=== PATIENT | female | born 1940 | race African-American/Black ===

== ENCOUNTER → 2016-06-04 | Outpatient (CLI) | payer MEDICARE, BC, OTHER ==
[2016-06-04 10:40] LABS: HEMATOCRIT 42.4 % (36.0-47.0); HEMOGLOBIN 13.5 g/dL (12.0-15.5); HGB HCT DIFFERENCE -1.9; MEAN CORPUSCULAR HEMOGLOBIN 29.6 pg (27.0-33.4); MEAN CORPUSCULAR HGB CONC 31.8 g/dL (32.0-36.0); MEAN CORPUSCULAR VOLUME 93 fl (80-97); RED BLOOD COUNT 4.57 10^6/uL (3.72-5.28); RED CELL DISTRIBUTION WIDTH 14.1 % (11.5-14.0); WHITE BLOOD COUNT 3.5 10^3/uL (4.0-10.5)
[2016-06-04 10:45] LABS: APPEARANCE,URINE CLEAR; BILIRUBIN,URINE NEGATIVE (NEGATIVE); GLUCOSE, URINE NEGATIVE (NEGATIVE); KETONES,URINE NEGATIVE (NEGATIVE); LEUKOCYTE ESTERASE,URINE NEGATIVE (NEGATIVE); NITRITE,URINE NEGATIVE (NEGATIVE); PROTEIN,URINE NEGATIVE (NEGATIVE); URINE SPECIFIC GRAVITY 1.006; UROBILINOGEN,URINE NEGATIVE mg/dL (<2.0)
[2016-06-04 11:02] LABS: ALANINE AMINOTRANSFERASE 33 U/L (9-52); ALBUMIN 4.1 g/dL (3.5-5.0); ALKALINE PHOSPHATASE 116 U/L (38-126); ANION GAP 15 (5-19); ASPARTATE AMINO TRANSFERASE 30 U/L (14-36); BILIRUBIN,DIRECT 0.1 mg/dL (0.0-0.4); BILIRUBIN,TOTAL 0.6 mg/dL (0.2-1.3); BLOOD UREA NITROGEN 18 mg/dL (7-20); CALCIUM 9.6 mg/dL (8.4-10.2); CARBON DIOXIDE 26 mmol/L (22-30); CHLORIDE 104 mmol/L (98-107); CREATININE RESULT 1.19 mg/dL (0.52-1.25); GLUCOSE 87 mg/dL (75-110); POTASSIUM 3.7 mmol/L (3.6-5.0); SODIUM 145.1 mmol/L (137-145); TOTAL PROTEIN 6.6 g/dL (6.3-8.2)
== END ==
LOC: OD 09:45
PROVIDERS: ATTEND Internal Medicine Nephrology
DX: N18.3 Chronic kidney disease, stage 3 (moderate) (principal); I50.9 Heart failure, unspecified; I13.0 Hypertensive heart and chronic kidney disease with heart failure and stage 1 through stage 4 chronic kidney disease, or unspecified chronic kidney disease
CPT/HCPCS: 36415; 80053; 81001; 85027

== ENCOUNTER 2016-06-06 16:29 | Emergency (ER) | payer MEDICARE, BC ==
[2016-06-06] MEDS ORDERED: ASPIRIN 81 MG TABLET, CHEWABLE PO ONE ×2 (17:07→17:10)
--- NOTE | 2016-06-06 17:11 | ER Document Report ---
ED Medical Screen (RME) - General Chief Complaint: Back Pain Stated Complaint: CHEST PAIN AND NECK PAIN Mode of Arrival: Wheelchair Information source: Patient Notes: This is a 76-year-old female who presents to the ER for concerns of upper back pain radiating into her neck. This began this morning upon awakening. It is also associated with the slight substernal chest pain and pressure. She states this feels similar to her prior cardiac pain. She has had some shortness of breath and some nausea associated with these symptoms. The chest pain is described as "indigestion pain". She has taken one 81 mg aspirin today. Her current chest pain is described as 5 out of 10 in her neck and back pain is 8 out of 10. I have greeted and performed a rapid initial assessment of this patient. A comprehensive ED assessment and evaluation of the patient, analysis of test results and completion of the medical decision making process will be conducted by additional ED providers. TRAVEL OUTSIDE OF THE [place] IN LAST 30 DAYS: No - Related Data Allergies/Adverse Reactions: No Known Allergies Allergy (Verified 01/10/16 12:37) Past Medical History - Past Medical History Cardiac Medical History: Reports: Hx Coronary Artery Disease, Hx Heart Attack, Hx Hypercholesterolemia, Hx Hypertension Pulmonary Medical History: Reports: Hx COPD Renal/ Medical History: Denies: Hx Peritoneal Dialysis GI Medical History: Reports: Hx Gastroesophageal Reflux Disease Psychiatric Medical History: Reports: Hx Anxiety, Hx Depression Past Surgical History: Reports: Hx Cardiac Catheterization, Hx Hysterectomy - Immunizations Hx Diphtheria, Pertussis, Tetanus Vaccination: No Physical Exam - Vital signs Vitals: Temp Pulse Resp BP Pulse Ox 98.2 F 53 L 18 146/62 H 99 06/06/16 16:31 06/06/16 16:31 06/06/16 16:31 06/06/16 16:31 06/06/16 16:31 Course - Vital Signs Vital signs: Temp Pulse Resp BP Pulse Ox 97.6 F 53 L 14 143/55 H 99 06/06/16 18:54 06/06/16 16:31 06/06/16 18:55 06/06/16 18:55 06/06/16 18:55 - Laboratory Result Diagrams: 06/06/16 17:23 06/06/16 17:23 Laboratory results interpreted by me: 06/06/16 17:23 Potassium 3.5 L BUN 30 H Creatinine 1.49 H Est GFR ( Amer) 41 L Est GFR (Non-Af Amer) 34 L Glucose 120 H Doctor's Discharge - Discharge Clinical Impression: Cervical muscle pain Condition: Stable Disposition: HOME, SELF-CARE Instructions: Muscle Strain ([facility]), Warm Packs ([facility]) Additional Instructions: Gentle massage and gentle stretching will help your pain. Anti-inflammatory medications will help as well. Follow-up with your primary care provider and reconciling clerk in the next 1-2 days. Return to the emergency room immediately if symptoms worsen or any additional concerns. Referrals: ROCKY HALE MD [Primary Care Provider] - Follow up as needed
[2016-06-06 17:44] LABS: ABSOLUTE BASOPHILS # (AUTO) 0.1 10^3/uL (0.0-0.2); ABSOLUTE EOSINOPHILS # (AUTO) 0.2 10^3/uL (0.0-0.6); ABSOLUTE MONOCYTES (AUTO) 0.4 10^3/uL (0.1-1.4); ABSOLUTE NEUT (AUTO) 2.3 10^3/uL (1.7-8.2); BASOPHILS % (AUTO) 1.3 % (0-2); EOSINOPHILS % (AUTO) 4.5 % (0-6); HEMATOCRIT 41.4 % (36.0-47.0); HEMOGLOBIN 13.4 g/dL (12.0-15.5); HGB HCT DIFFERENCE -1.2; LYMPHOCYTES % (AUTO) 40.6 % (13-45); MEAN CORPUSCULAR HEMOGLOBIN 29.7 pg (27.0-33.4); MEAN CORPUSCULAR HGB CONC 32.4 g/dL (32.0-36.0); MEAN CORPUSCULAR VOLUME 92 fl (80-97); MONOCYTES % (AUTO) 7.2 % (3-13); RED BLOOD COUNT 4.52 10^6/uL (3.72-5.28); RED CELL DISTRIBUTION WIDTH 13.9 % (11.5-14.0); SEGMENTED NEUTROPHILS % (AUTO) 46.4 % (42-78); WHITE BLOOD COUNT 4.9 10^3/uL (4.0-10.5)
[2016-06-06 17:50] LABS: PROTHROMBIN TIME 13.2 SEC (11.4-15.4)
[2016-06-06 18:09] LABS: ALANINE AMINOTRANSFERASE 39 U/L (9-52); ALKALINE PHOSPHATASE 124 U/L (38-126); ANION GAP 13 (5-19); ASPARTATE AMINO TRANSFERASE 32 U/L (14-36); BILIRUBIN,DIRECT 0.3 mg/dL (0.0-0.4); BILIRUBIN,TOTAL 0.6 mg/dL (0.2-1.3); BLOOD UREA NITROGEN 30 mg/dL (7-20); CALCIUM 10.1 mg/dL (8.4-10.2); CARBON DIOXIDE 27 mmol/L (22-30); CHLORIDE 103 mmol/L (98-107); CREATINE KINASE 110 U/L (30-135); CREATININE RESULT 1.49 mg/dL (0.52-1.25); GLUCOSE 120 mg/dL (75-110); POTASSIUM 3.5 mmol/L (3.6-5.0); SODIUM 142.8 mmol/L (137-145)
[2016-06-06 18:21] LABS: CREATINE KINASE MB 1.02 ng/mL (<4.55); TROPONIN I 0.013 ng/mL
--- NOTE | 2016-06-06 18:48 | ER Document Report ---
ED General Pain - General Chief Complaint: Back Pain Stated Complaint: CHEST PAIN AND NECK PAIN Time seen by provider: 18:43 Mode of Arrival: Wheelchair Information source: Patient TRAVEL OUTSIDE OF THE [place] IN LAST 30 DAYS: No - HPI Patient complains to provider of: neck pain, upper back pain, chest pain Onset: Other - Months Onset/Duration: Gradual, Persistent, Worse Quality of pain: Achy Severity: Moderate Pain Level: 3 Exacerbated by: Standing, Movement Relieved by: Denies Similar symptoms previously: Yes Recently seen / treated by doctor: Yes Notes: Patient is a 76-year-old female who presents to the emergency room complaining of upper back and neck pain that's been going on for the past several months, it is worsened when she is standing for too long, today when she woke up in the morning, she reports having a slight amount of chest pain, which resolved almost immediately, and has not persisted throughout the day, she reports that to be a burning sensation in her chest and associates it with indigestion, the pain in her neck and upper back did not go away throughout the day today as it has in the past and therefore she came to the emergency room for evaluation on the recommendation of her daughter, patient saw her pattern room attendant yesterday but states she was not having the pain at the time of her visit so she did not mention it to him, at time of my evaluation she denies any chest pain or shortness of breath, no nausea, vomiting or diarrhea, no fever or chills, no cough, cold or congestion - Related Data Allergies/Adverse Reactions: No Known Allergies Allergy (Verified 01/10/16 12:37) Past Medical History - General Information source: Patient - Social History Smoking Status: Never Smoker Chew tobacco use (# tins/day): No Frequency of alcohol use: None Drug Abuse: None Family History: Reviewed & Not Pertinent - Past Medical History Cardiac Medical History: Reports: Hx Coronary Artery Disease, Hx Heart Attack, Hx Hypercholesterolemia, Hx Hypertension Pulmonary Medical History: Reports: Hx COPD Renal/ Medical History: Denies: Hx Peritoneal Dialysis GI Medical History: Reports: Hx Gastroesophageal Reflux Disease Psychiatric Medical History: Reports: Hx Anxiety, Hx Depression Past Surgical History: Reports: Hx Cardiac Catheterization, Hx Hysterectomy - Immunizations Hx Diphtheria, Pertussis, Tetanus Vaccination: No Hx Pneumococcal Vaccination: 02/11/09 Review of Systems - Review of Systems Constitutional: No symptoms reported EENT: No symptoms reported Cardiovascular: Chest pain Respiratory: No symptoms reported Gastrointestinal: No symptoms reported Genitourinary: No symptoms reported Female Genitourinary: No symptoms reported Musculoskeletal: See HPI Skin: No symptoms reported Hematologic/Lymphatic: No symptoms reported Neurological/Psychological: No symptoms reported -: Yes All other systems reviewed and negative Physical Exam - Vital signs Vitals: Temp Pulse Resp BP Pulse Ox 98.2 F 53 L 18 146/62 H 99 06/06/16 16:31 06/06/16 16:31 06/06/16 16:31 06/06/16 16:31 06/06/16 16:31 Interpretation: Normal - General General appearance: Appears well, Alert - HEENT Head: Normocephalic, Atraumatic Eyes: Normal Conjunctiva: Normal Extraocular movements intact: Yes Eyelashes: Normal Pupils: PERRL Neck: Other - Tenderness to palpate in bilateral paraspinal musculature of the cervical spine into the trapezius muscles - Respiratory Respiratory status: No respiratory distress Chest status: Nontender Breath sounds: Normal Chest palpation: Normal - Cardiovascular Rhythm: Regular Heart sounds: Normal auscultation Murmur: No - Abdominal Inspection: Normal Distension: No distension Bowel sounds: Normal Tenderness: Nontender Organomegaly: No organomegaly - Back Back: Normal, Nontender - Extremities General upper extremity: Normal inspection, Nontender, Normal color, Normal ROM , Normal temperature General lower extremity: Normal inspection, Nontender, Normal color, Normal ROM , Normal temperature, Normal weight bearing. No: Kel's sign - Neurological Neuro grossly intact: Yes Cognition: Normal Orientation: AAOx4 Jennifer Coma Scale Eye Opening: Spontaneous Jennifer Coma Scale Verbal: Oriented [place] Coma Scale Motor: Obeys Commands [place] Coma Scale Total: 15 Speech: Normal Motor strength normal: LUE, RUE, LLE, RLE Sensory: Normal - Psychological Associated symptoms: Normal affect, Normal mood - Skin Skin Temperature: Warm Skin Moisture: Dry Skin Color: Normal Course - Re-evaluation Re-evalutation: 06/06/16 18:46 Lab and imaging findings were discussed with patient at bedside, she has tenderness to palpate in her paraspinal musculature of the cervical spine and the trapezius muscles, her symptoms are consistent with musculoskeletal strain, she was offered pain medication but states that she will take a Tylenol PM when she gets home and follow-up with her primary care provider and pattern room attendant in the next 1-2 days, patient was advised to return to emergency room if symptoms worsen in any way, patient acknowledges understanding and agreement with this plan - Vital Signs Vital signs: Temp Pulse Resp BP Pulse Ox 98.2 F 53 L 20 125/55 L 97 06/06/16 16:31 06/06/16 16:31 06/06/16 18:01 06/06/16 18:01 06/06/16 18:01 - Laboratory Result Diagrams: 06/06/16 17:23 06/06/16 17:23 Laboratory results interpreted by me: 06/06/16 17:23 Potassium 3.5 L BUN 30 H Creatinine 1.49 H Est GFR ( Amer) 41 L Est GFR (Non-Af Amer) 34 L Glucose 120 H - Diagnostic Test Radiology reviewed: Image reviewed, Reports reviewed - EKG Interpretation by Me EKG shows normal: Sinus rhythm Rate: Normal Rhythm: NSR, PVC's When compared to previous EKG there are: No significant change Discharge - Discharge Clinical Impression: Cervical muscle pain Condition: Stable Disposition: HOME, SELF-CARE Instructions: Muscle Strain ([facility]), Warm Packs ([facility]) Additional Instructions: Gentle massage and gentle stretching will help your pain. Anti-inflammatory medications will help as well. Follow-up with your primary care provider and pattern room attendant in the next 1-2 days. Return to the emergency room immediately if symptoms worsen or any additional concerns.
[2016-06-06 18:58] VITALS: BP 143/55
--- NOTE | 2016-06-06 21:16 | EKG REPORT ---
SEVERITY:- ABNORMAL ECG - SINUS RHYTHM MULTIPLE VENTRICULAR PREMATURE COMPLEXES LVH WITH SECONDARY REPOLARIZATION ABNORMALITY BORDERLINE INFERIOR Q WAVES : Confirmed by: Ham Monteiro 06-Jun-2016 21:16:26
== END 2016-06-06 18:58 | disposition home or self-care (01) ==
LOC: ER 16:29
DX: M54.2 Cervicalgia (principal); M54.9 Dorsalgia, unspecified; R07.9 Chest pain, unspecified; I25.10 Atherosclerotic heart disease of native coronary artery without angina pectoris; E78.00 Pure hypercholesterolemia, unspecified; I10 Essential (primary) hypertension; J44.9 Chronic obstructive pulmonary disease, unspecified; I25.2 Old myocardial infarction; Z90.710 Acquired absence of both cervix and uterus
CPT/HCPCS: 93005; 99284; 36415; 82553; 82550; 85025; 85610; 80053; 84484; 71010; 93010; A9270

== ENCOUNTER 2016-09-03 19:12 | Observation (INO) | payer BC, MEDICARE, OTHER ==
--- NOTE | 2016-09-03 20:08 | ER Document Report ---
ED Medical Screen (RME) - General Chief Complaint: Chest Pressure Stated Complaint: CHEST PRESSURE, LEFT ARM PAIN Time Seen by Provider: 09/03/16 20:06 Mode of Arrival: Wheelchair Information source: Patient, Relative TRAVEL OUTSIDE OF THE [place] IN LAST 30 DAYS: No - HPI Patient complains to provider of: CP Onset: This afternoon - pt. with h/o pacemaker with chest heaviness earlier today with radiation to L arm - Related Data Allergies/Adverse Reactions: No Known Allergies Allergy (Verified 01/10/16 12:37) Past Medical History - Social History Chew tobacco use (# tins/day): No Frequency of alcohol use: None Drug Abuse: None - Past Medical History Cardiac Medical History: Reports: Hx Coronary Artery Disease, Hx Heart Attack, Hx Hypercholesterolemia, Hx Hypertension Pulmonary Medical History: Reports: Hx COPD Renal/ Medical History: Denies: Hx Peritoneal Dialysis GI Medical History: Reports: Hx Gastroesophageal Reflux Disease Psychiatric Medical History: Reports: Hx Anxiety, Hx Depression Past Surgical History: Reports: Hx Cardiac Catheterization, Hx Hysterectomy - Immunizations Hx Diphtheria, Pertussis, Tetanus Vaccination: No
--- NOTE | 2016-09-03 20:32 | ER Document Report ---
ED General - General Chief Complaint: Chest Pressure Stated Complaint: CHEST PRESSURE, LEFT ARM PAIN Time Seen by Provider: 09/03/16 20:06 Mode of Arrival: Wheelchair Notes: 76-year-old female with a history of coronary bypass and pacemaker a patient of Dr. Hernández, presents with pain in her left chest heavy, for minutes at a time radiating down her left arm with some some tingling. Nonexertional not positional. Similar to prior. Patient had a stress test in 2014 showing old NV but no reversible areas of ischemia and the recommendation was to aggressively manage her risk factors. She has a history of severe systolic edges of heart failure and COPD. TRAVEL OUTSIDE OF THE [place] IN LAST 30 DAYS: No - Related Data Allergies/Adverse Reactions: No Known Allergies Allergy (Verified 01/10/16 12:37) Past Medical History - General Information source: Patient, Relative - Social History Smoking Status: Never Smoker Chew tobacco use (# tins/day): No Frequency of alcohol use: None Drug Abuse: None Family History: Reviewed & Not Pertinent - Past Medical History Cardiac Medical History: Reports: Hx Coronary Artery Disease, Hx Heart Attack, Hx Hypercholesterolemia, Hx Hypertension Pulmonary Medical History: Reports: Hx COPD Renal/ Medical History: Denies: Hx Peritoneal Dialysis GI Medical History: Reports: Hx Gastroesophageal Reflux Disease Psychiatric Medical History: Reports: Hx Anxiety, Hx Depression Past Surgical History: Reports: Hx Cardiac Catheterization, Hx Hysterectomy - Immunizations Hx Diphtheria, Pertussis, Tetanus Vaccination: No Hx Pneumococcal Vaccination: 02/11/09 Review of Systems - Review of Systems Notes: REVIEW OF SYSTEMS GEN: Denies fever, chills, weight loss ENT: Denies sore throat, nasal discharge, ear pain EYES: Denies blurry vision, eye pain, discharge CV: Chest pain RESP: Denies cough, shortness of breath, wheezing GI: Denies abdominal pain, nausea, vomiting, diarrhea MSK: Denies joint pain/swelling, edema, SKIN: Denies rash, skin lesions LYMPH: Denies swollen glands/lymph nodes NEURO: Denies headache, focal weakness or numbness, dizziness PSYCH: Denies depression, suicidal or homicidal ideation PHYSICAL EXAMINATION General: No acute distress, well-nourished Head: Atraumatic, normocephalic ENT: Mouth normal, oropharynx moist, no exudates or tonsillar enlargement Eyes: Conjunctiva normal, pupils equal, lids normal Neck: No JVD, supple, no guarding CVS: Normal rate, regular rhythm, no murmurs. Well-healed sternotomy and pacemaker scars. Resp: No resp distress, equal and normal breath sounds bilaterally GI: Nondistended, soft, no tenderness to palpation, no rebound or guarding Ext: No deformities, no edema, normal range of motion in upper and lower ext Back: No CVA or midline TTP Skin: No rash, warm Lymphatic: No lymphadeopathy noted Neuro: Awake, alert. Face symmetric. GCS 15. Physical Exam - Vital signs Vitals: Resp Pulse Ox 21 H 99 09/03/16 20:23 09/03/16 20:23 Course - Re-evaluation Re-evalutation: 09/03/16 21:03 76-year-old female presents with chest pain with both typical and atypical features and a history of coronary artery disease. Though her stress test a year and a half ago slightly lowers her risk, her heart score is still: 6 And she has EKG changes. We will rule her out with a troponin and admit her for further workup. 09/03/16 21:05 09/03/16 21:22 Negative troponin. Pain-free. Accepted by Dr. Fragoso for admission. - Vital Signs Vital signs: Temp Pulse Resp BP Pulse Ox 21 H 148/65 H 99 09/03/16 21:01 09/03/16 21:01 09/03/16 21:01 - Laboratory Result Diagrams: 09/03/16 20:25 09/03/16 20:25 Laboratory results interpreted by ne: 09/03/16 20:25 BUN 21 H Est GFR ( Amer) 52 L Est GFR (Non-Af Amer) 43 L - EKG Interpretation by Ak EKG shows normal: Sinus rhythm Rate: Normal Rhythm: NSR - T-wave inversion in V4 V5 V6 with borderline ST depression in V5. T-wave inversion in lead III, 2, aVF. These are slightly better than before. The T-wave is now upright in V3 which is new. Discharge - Discharge Clinical Impression: Chest pain Qualifiers: Chest pain type: other chest pain Qualified Code(s): R07.89 - Other chest pain Condition: Good Disposition: ADMITTED OBSERVATION Admitting Provider: Hospitalist Unit Admitted: Telemetry
[2016-09-03 20:36] LABS: ABSOLUTE EOSINOPHILS # (AUTO) 0.2 10^3/uL (0.0-0.6); ABSOLUTE MONOCYTES (AUTO) 0.3 10^3/uL (0.1-1.4); ABSOLUTE NEUT (AUTO) 2.1 10^3/uL (1.7-8.2); BASOPHILS % (AUTO) 1.1 % (0-2); EOSINOPHILS % (AUTO) 4.9 % (0-6); HEMATOCRIT 40.8 % (36.0-47.0); HEMOGLOBIN 13.3 g/dL (12.0-15.5); HGB HCT DIFFERENCE -0.9; LYMPHOCYTES % (AUTO) 43.3 % (13-45); MEAN CORPUSCULAR HEMOGLOBIN 30.6 pg (27.0-33.4); MEAN CORPUSCULAR HGB CONC 32.7 g/dL (32.0-36.0); MEAN CORPUSCULAR VOLUME 93 fl (80-97); MONOCYTES % (AUTO) 6.4 % (3-13); RED BLOOD COUNT 4.36 10^6/uL (3.72-5.28); RED CELL DISTRIBUTION WIDTH 13.3 % (11.5-14.0); SEGMENTED NEUTROPHILS % (AUTO) 44.3 % (42-78); WHITE BLOOD COUNT 4.7 10^3/uL (4.0-10.5)
[2016-09-03 20:55] LABS: ALANINE AMINOTRANSFERASE 31 U/L (9-52); ALBUMIN 4.2 g/dL (3.5-5.0); ALKALINE PHOSPHATASE 124 U/L (38-126); ANION GAP 11 (5-19); ASPARTATE AMINO TRANSFERASE 25 U/L (14-36); BILIRUBIN,DIRECT 0.3 mg/dL (0.0-0.4); BILIRUBIN,TOTAL 0.5 mg/dL (0.2-1.3); BLOOD UREA NITROGEN 21 mg/dL (7-20); CALCIUM 10.2 mg/dL (8.4-10.2); CARBON DIOXIDE 24 mmol/L (22-30); CHLORIDE 106 mmol/L (98-107); CREATINE KINASE 120 U/L (30-135); CREATININE RESULT 1.22 mg/dL (0.52-1.25); GLUCOSE 97 mg/dL (75-110); POTASSIUM 3.9 mmol/L (3.6-5.0); SODIUM 140.9 mmol/L (137-145); TOTAL PROTEIN 7.1 g/dL (6.3-8.2)
[2016-09-03 21:05] LABS: CREATINE KINASE MB 0.86 ng/mL (<4.55)
[2016-09-03 21:09] LABS: TROPONIN I < 0.012 ng/mL
--- NOTE | 2016-09-03 21:14 | RADIOLOGY REPORT (SQ) ---
EXAM DESCRIPTION: CHEST PA/LAT COMPLETED DATE/TIME: 09/03/2016 8:36 pm REASON FOR STUDY: cp COMPARISON: 01/10/2016 EXAM PARAMETERS: NUMBER OF VIEWS: two views TECHNIQUE: Digital Frontal and Lateral radiographic views of the chest acquired. RADIATION DOSE: NA LIMITATIONS: none FINDINGS: LUNGS AND PLEURA: No opacities, masses or pneumothorax. No pleural effusion. MEDIASTINUM AND HILAR STRUCTURES: No masses or contour abnormalities. HEART AND VASCULAR STRUCTURES: Heart normal size. No evidence for failure. BONES: No acute findings. HARDWARE: Cardiac hardware unchanged. OTHER: No other significant finding. IMPRESSION: No acute pulmonary disease. TECHNICAL DOCUMENTATION: JOB ID: [id number] [employer]- All Rights Reserved
[2016-09-03] MEDS ORDERED: LORAZEPAM 1 MG TABLET PO PRN (21:51)
[2016-09-03] MEDS ORDERED: NITROGLYCERIN 0.4 MG/TAB 25 TAB/BOTTLE SL PRN (21:52)
[2016-09-03] MEDS ORDERED: MAG HYDROX/AL HYDROX/SIMETH SUSP 30 ML UDCUP PO PRN (21:52)
[2016-09-03] MEDS ORDERED: HEPARIN SOD (PORCINE) 5,000 UNIT/ML 1 ML SYRINGE SUBCUT ONE (23:00)
[2016-09-03] MEDS ORDERED: CARVEDILOL 12.5 MG TABLET PO ONE (23:00)
[2016-09-04 03:16] LABS: CREATINE KINASE MB 0.78 ng/mL (<4.55)
[2016-09-04 03:23] LABS: TROPONIN I < 0.012 ng/mL
--- NOTE | 2016-09-04 05:01 | PDOC H&P ---
History of Present Illness Admission Date/PCP: 09/03/16 21:52 ROCKY HALE MD Patient complains of: Chest pain History of Present Illness: BISHNU BAIN is a 76 year old female with a past medical history of coronary artery disease status post quadruple bypass graft 2013, congestive heart failure with an ejection fraction of 35%, status post permanent pacemaker AICD placement, hypertension, GERD and dyslipidemia. Patient been her usual state of health until approximately 2 hours prior to presentation developing pressure- like retrosternal chest pain exacerbated by activity pain is somewhat atypical in that it also included pain in her left hand that radiated to the shoulder and a dull nature. She admits some mild shortness of breath no nausea vomiting , diaphoresis or palpitations. She is currently pain-free on initial workup in the emergency room is unremarkable she is referred to the hospitalist for observation. She denies any recent change in medications. Past Medical History Cardiac Medical History: Reports: Coronary Artery Disease, Myocardial Infarction , Hyperlipidema, Hypertension Pulmonary Medical History: Reports: Chronic Obstructive Pulmonary Disease (COPD) GI Medical History: Reports: Gastroesophageal Reflux Disease Psychiatric Medical History: Reports: Depression Past Surgical History Past Surgical History: Reports: Cardiac Catheterization, Hysterectomy Social History Information Source: Patient Lives with: Alone Smoking Status: Never Smoker Frequency of Alcohol Use: None Hx Recreational Drug Use: No Drugs: None Hx Prescription Drug Abuse: No - Advance Directive Resuscitation Status: Full Code Family History Family History: Arthritis, CAD, COPD, Hypertension Parental Family History Reviewed: Yes Children Family History Reviewed: Yes Sibling(s) Family History Reviewed.: Yes Medication/Allergy Home Medications: Aspirin [Aspirin 325 mg Tablet] 325 mg PO DAILY 02/26/14 Atorvastatin Calcium [Lipitor] 40 mg PO DAILY 02/26/14 Captopril [Capoten 25 mg Tablet] 12.5 mg PO TID 02/26/14 Lorazepam [Ativan] 0.5 mg PO BID PRN 02/26/14 Pantoprazole Sodium 40 mg PO QAM 02/26/14 Furosemide [Lasix 20 mg Tablet] 20 mg PO DAILY 04/19/15 Paroxetine HCl [Paxil] 10 mg PO QHS 04/19/15 Carvedilol [Coreg 12.5 mg Tablet] 12.5 mg PO Q12 #60 tablet 04/20/15 Lisinopril [Prinivil 10 mg Tablet] 10 mg PO Q12 #60 tablet 04/20/15 Potassium Chloride [Klor-Con 10 Meq Tablet.sa] 20 meq PO DAILY #60 tablet.sa 10/27 Allergies/Adverse Reactions: No Known Allergies Allergy (Verified 01/10/16 12:37) Review of Systems Constitutional: ABSENT: chills, fever(s), headache(s), weight gain, weight loss Eyes: ABSENT: visual disturbances Ears: ABSENT: hearing changes Cardiovascular: ABSENT: chest pain, dyspnea on exertion, edema, orthropnea, palpitations Respiratory: ABSENT: cough, hemoptysis Gastrointestinal: ABSENT: abdominal pain, constipation, diarrhea, hematemesis, hematochezia, nausea, vomiting Genitourinary: ABSENT: dysuria, hematuria Musculoskeletal: ABSENT: joint swelling Integumentary: ABSENT: rash, wounds Neurological: ABSENT: abnormal gait, abnormal speech, confusion, dizziness, focal weakness, syncope Psychiatric: ABSENT: anxiety, depression, homidical ideation, suicidal ideation Endocrine: ABSENT: cold intolerance, heat intolerance, polydipsia, polyuria Hematologic/Lymphatic: ABSENT: easy bleeding, easy bruising Physical Exam Vital Signs: Temp Pulse Resp BP Pulse Ox 57 L 16 148/70 H 99 09/04/16 01:55 09/03/16 22:31 09/03/16 22:31 09/03/16 22:31 General appearance: PRESENT: no acute distress, well-developed, well-nourished Head exam: PRESENT: atraumatic, normocephalic Eye exam: PRESENT: conjunctiva pink, EOMI, PERRLA. ABSENT: scleral icterus Ear exam: PRESENT: normal external ear exam Mouth exam: PRESENT: moist, tongue midline Neck exam: ABSENT: carotid bruit, JVD, lymphadenopathy, thyromegaly Respiratory exam: PRESENT: clear to auscultation greg. ABSENT: rales, rhonchi, wheezes Cardiovascular exam: PRESENT: RRR. ABSENT: diastolic murmur, rubs, systolic murmur Pulses: PRESENT: normal dorsalis pedis pul Vascular exam: PRESENT: normal capillary refill GI/Abdominal exam: PRESENT: normal bowel sounds, soft. ABSENT: distended, guarding, mass, organolmegaly, rebound, tenderness Rectal exam: PRESENT: deferred Extremities exam: PRESENT: full ROM. ABSENT: calf tenderness, clubbing, pedal edema Neurological exam: PRESENT: alert, awake, oriented to person, oriented to place , oriented to time, oriented to situation, CN II-XII grossly intact. ABSENT: motor sensory deficit Psychiatric exam: PRESENT: appropriate affect, normal mood. ABSENT: homicidal ideation, suicidal ideation Skin exam: PRESENT: dry, intact, warm. ABSENT: cyanosis, rash Results Laboratory Results: 09/04/16 02:38 Triglycerides Cancelled Cholesterol Cancelled LDL Cholesterol Direct Cancelled VLDL Cholesterol Cancelled HDL Cholesterol Cancelled 09/04/16 09/04/16 02:38 02:38 Creatine Kinase 95 CK-MB (CK-2) 0.78 Troponin I < 0.012 Impressions: Chest X-Ray 09/03/16 20:07 IMPRESSION: No acute pulmonary disease. Assessment & Plan - Diagnosis (1) Chest pain Qualifiers: Chest pain type: unspecified Qualified Code(s): R07.9 - Chest pain, unspecified Is this a current diagnosis for this admission?: YesPlan: Orders for observation on a monitored bed, supplemental oxygen, aspirin symptomatic management, evaluation of risk factors for coronary artery disease, serial cardiac enzymes and Cardiolite stress test ordered. (2) Congestive heart failure Is this a current diagnosis for this admission?: YesPlan: Currently compensated continue outpatient regiment (3) HTN (hypertension) Qualifiers: Hypertension type: essential hypertension Qualified Code(s): I10 - Essential (primary) hypertension Is this a current diagnosis for this admission?: YesPlan: Somewhat uncontrolled hypertension resumption of home regiment with as needed Vasotec. - Time Time Spent: 30 to 50 Minutes - Inpatient Certification Medical Necessity: Need Close Monitoring Due to Risk of Patient Decompensation
[2016-09-04] MEDS ORDERED: HEPARIN SOD (PORCINE) 5,000 UNIT/ML 1 ML SYRINGE SUBCUT SCH (06:00)
[2016-09-04 06:23] LABS: CHOLESTEROL 163.86 mg/dL (0-200); Direct HDL 46 mg/dL (>40); TRIGLYCERIDES 182 mg/dL (<150)
[2016-09-04 06:34] LABS: DIRECT LDL 86 mg/dL (<100)
[2016-09-04 06:37] LABS: VLDL CHOLESTEROL 36.4 mg/dL (10-31)
[2016-09-04] MEDS ORDERED: LANSOPRAZOLE 30 MG TAB.RAP.DR PO SCH (08:00)
[2016-09-04 08:40] VITALS: BP 147/58
[2016-09-04 09:14] LABS: CREATINE KINASE MB 0.75 ng/mL (<4.55)
[2016-09-04 09:18] LABS: TROPONIN I < 0.012 ng/mL
[2016-09-04] MEDS ORDERED: ASPIRIN 325 MG TABLET PO SCH (10:00)
[2016-09-04] MEDS ORDERED: FUROSEMIDE 20 MG TABLET PO SCH (10:00)
[2016-09-04] MEDS ORDERED: CAPTOPRIL 25 MG TABLET PO SCH (10:00)
[2016-09-04] MEDS ORDERED: CARVEDILOL 12.5 MG TABLET PO SCH (10:00)
[2016-09-04] MEDS ORDERED: ATORVASTATIN CALCIUM 20 MG TABLET PO SCH (10:00)
[2016-09-04] MEDS ORDERED: POTASSIUM CHLORIDE 10 MEQ TABLET.SA PO SCH (10:00)
[2016-09-04] MEDS ORDERED: DOCUSATE SODIUM 100 MG CAPSULE PO SCH (10:00)
--- NOTE | 2016-09-04 11:56 | PDOC DISCHARGE SUMMARY ---
General - Admit/Disc Date/PCP Admission Date/Primary Care Provider: 09/03/16 21:52 ROCKY HALE MD Discharge Date: 09/04/16 - Discharge Diagnosis (1) Atypical chest pain Is this a current diagnosis for this admission?: YesSummary: likely MSK as she ruled out for acute ischemia with negative enzymes and no ecg changes; furthermore, a great deal of his symptoms are reproducible on exam. I confirmed with Yanique at [facility] that she did indeed have a negative cardiolyte stress test on 05/15/16 and in 06/27 f/u only change made to her regimen was addition of diuretic to help offload the heart. she is stable for and quite anxious for discharge home, I secured her a f/u appt with cardiology this at 3:30 in [place]. return to the ED for worsening or recurrent symptoms. (2) Diabetes Is this a current diagnosis for this admission?: Yes (3) Coronary atherosclerosis Is this a current diagnosis for this admission?: Yes (4) HTN (hypertension) Is this a current diagnosis for this admission?: Yes - Additional Information Resuscitation Status: Full Code Discharge Diet: Cardiac Discharge Activity: Activity As Tolerated Home Medications: Amlodipine Besylate [Norvasc 2.5 mg Tablet] 2.5 mg PO DAILY 09/04/16 Aspirin [Adult Low Dose Aspirin EC] 81 mg PO DAILY 09/04/16 Atorvastatin Calcium [Lipitor 40 mg Tablet] 20 mg PO DAILY 09/04/16 Carvedilol [Coreg 12.5 mg Tablet] 18.75 mg PO Q12 09/04/16 Isosorbide Mononitrate [Imdur 30 mg Tablet.er] 30 mg PO DAILY 09/04/16 Lisinopril/Hydrochlorothiazide [Zestoretic 20-12.5 mg Tablet] 1 tab PO DAILY Lorazepam [Ativan 0.5 mg Tablet] 0.5 mg PO BIDP PRN 09/04/16 Nitroglycerin [Nitrostat 0.4 mg (1/150 Gr) Tabs 25/Bottle] 1 tab SL Q5MP PRN bottle 09/04/16 Pantoprazole Sodium [Protonix] 40 mg PO DAILY 09/04/16 History of Present Illness Patient complains of: chest pain History of Present Illness: BISHNU BAIN is a 76 year old female with a past medical history of coronary artery disease status post quadruple bypass graft 2013, congestive heart failure with an ejection fraction of 35%, status post permanent pacemaker AICD placement, hypertension, GERD and dyslipidemia. Patient been her usual state of health until approximately 2 hours prior to presentation developing pressure- like retrosternal chest pain exacerbated by activity pain is somewhat atypical in that it also included pain in her left hand that radiated to the shoulder and a dull nature. She admits some mild shortness of breath no nausea vomiting , diaphoresis or palpitations. She is currently pain-free on initial workup in the emergency room is unremarkable she is referred to the hospitalist for observation. She denies any recent change in medications. Hospital Course Hospital Course: she was monitored overnight on telemetry showing bradycardia with HR in mid 50' s and pacemaker supplementing her underlying sinus mark anthony with fairly frequent PVCs. she ruled out for acute ischemia with negative enzymes. her symptoms are largely reproducible on exam and resolved as of this morning. her pain seems to lie along her CABG scar and pacer pocket though both wounds appear intact with no overlying erythema or underlying fluctuance or fluid collection or heat. I was able to confirm a negative stress test this past May and secured her a quick f/u apppt with her cardiology group for this but she is stable for d/c home and should return to the ED immediately for persistent or escalating symptoms in the interim. she states understanding and agreement with the plan, expresses no concerns to me about going home at this time. Physical Exam Vital Signs: Temp Pulse Resp BP Pulse Ox 97.7 F 50 L 15 147/58 H 96 09/04/16 10:10 09/04/16 10:10 09/04/16 10:10 09/04/16 07:56 09/04/16 10:10 Intake & Output 09/03/16 09/04/16 09/05/16 06:59 06:59 06:59 Intake Total 222 Balance 222 Weight 62.7 kg General appearance: PRESENT: no acute distress, well-developed, well-nourished Head exam: PRESENT: atraumatic, normocephalic Eye exam: PRESENT: EOMI. ABSENT: scleral icterus Mouth exam: PRESENT: moist, neck supple Neck exam: PRESENT: full ROM. ABSENT: JVD Respiratory exam: PRESENT: chest wall tenderness - along surgical scar and point tenderness over medial aspect of her pacer pocket, clear to auscultation greg. ABSENT: accessory muscle use Cardiovascular exam: PRESENT: bradycardia, irregular rhythm, systolic murmur - soft Pulses: PRESENT: normal radial pulses, normal dorsalis pedis pul GI/Abdominal exam: PRESENT: normal bowel sounds, soft. ABSENT: tenderness Extremities exam: ABSENT: calf tenderness, pedal edema Musculoskeletal exam: PRESENT: ambulatory, full ROM Neurological exam: PRESENT: alert, awake, oriented to person, oriented to place , oriented to time, oriented to situation Psychiatric exam: PRESENT: appropriate affect, normal mood Skin exam: PRESENT: dry, warm Results Laboratory Results: 09/04/16 09/04/16 02:38 05:56 Triglycerides Cancelled 182 H Cholesterol Cancelled 163.86 LDL Cholesterol Direct Cancelled 86 VLDL Cholesterol Cancelled 36.4 H HDL Cholesterol Cancelled 46 09/04/16 09/04/16 09/04/16 02:38 02:38 08:27 Creatine Kinase 95 CK-MB (CK-2) 0.78 0.75 Troponin I < 0.012 < 0.012 Impressions: Chest X-Ray 09/03/16 20:07 IMPRESSION: No acute pulmonary disease. Qualifiers PATEINT BEING DISCHARGED WITH ANY OF THE FOLLOWING DIAGNOSIS?: No VTE patient discharged on overlapping Therapy?: No Reason(s) for not prescribing Overlap Therapy:: Not indicated Plan Discharge Plan: home with close outpt f/u with cardiology Time Spent: Greater than 30 Minutes
--- NOTE | 2016-09-04 12:52 | EKG REPORT ---
SEVERITY:- ABNORMAL ECG - SINUS RHYTHM LVH WITH SECONDARY REPOLARIZATION ABNORMALITY : Confirmed by: Alexandra Garvin MD 04-Sep-2016 12:52:15
== END 2016-09-04 10:45 | disposition home or self-care (01) ==
LOC: ER 19:12 → UNDOADMOB 21:30 → EH 21:30 → 4N 22:40 → EH 22:40
PROVIDERS: ADMIT Internal Medicine; ATTEND Internal Medicine
DX: R07.89 Other chest pain (principal); E11.9 Type 2 diabetes mellitus without complications; I25.10 Atherosclerotic heart disease of native coronary artery without angina pectoris; I50.9 Heart failure, unspecified; I11.0 Hypertensive heart disease with heart failure; E78.5 Hyperlipidemia, unspecified; K21.9 Gastro-esophageal reflux disease without esophagitis; I49.3 Ventricular premature depolarization; M79.642 Pain in left hand; R20.2 Paresthesia of skin; I25.2 Old myocardial infarction; Z79.899 Other long term (current) drug therapy; Z79.82 Long term (current) use of aspirin; Z95.1 Presence of aortocoronary bypass graft; Z95.810 Presence of automatic (implantable) cardiac defibrillator; Z82.49 Family history of ischemic heart disease and other diseases of the circulatory system
CPT/HCPCS: 93005; 99285; 36415 ×2; 82553 ×2; 82550 ×2; 85025; 80053; 84484 ×2; 80061; 71020; 93010; G0378 ×2; J1644; A9270; J3490 ×2

== ENCOUNTER → 2016-12-07 | Outpatient (CLI) | payer MEDICARE, OTHER ==
[2016-12-07 11:04] LABS: HEMATOCRIT 42.3 % (36.0-47.0); HEMOGLOBIN 13.9 g/dL (12.0-15.5); HGB HCT DIFFERENCE -0.6; MEAN CORPUSCULAR HEMOGLOBIN 30.4 pg (27.0-33.4); MEAN CORPUSCULAR VOLUME 92 fl (80-97); RED BLOOD COUNT 4.58 10^6/uL (3.72-5.28); RED CELL DISTRIBUTION WIDTH 14.1 % (11.5-14.0); WHITE BLOOD COUNT 3.5 10^3/uL (4.0-10.5)
[2016-12-07 11:32] LABS: ANION GAP 10 (5-19); BLOOD UREA NITROGEN 19 mg/dL (7-20); CALCIUM 10.4 mg/dL (8.4-10.2); CARBON DIOXIDE 28 mmol/L (22-30); CHLORIDE 107 mmol/L (98-107); CREATININE RESULT 1.17 mg/dL (0.52-1.25); GLUCOSE 70 mg/dL (75-110); POTASSIUM 3.9 mmol/L (3.6-5.0); SODIUM 145.4 mmol/L (137-145)
== END ==
LOC: OD 10:20
PROVIDERS: ATTEND Internal Medicine Nephrology
DX: I12.9 Hypertensive chronic kidney disease with stage 1 through stage 4 chronic kidney disease, or unspecified chronic kidney disease (principal); N18.3 Chronic kidney disease, stage 3 (moderate); I50.9 Heart failure, unspecified
CPT/HCPCS: 36415; 80048; 85027

== ENCOUNTER 2016-12-28 13:16 | Emergency (ER) | payer MEDICARE, OTHER ==
[2016-12-28] MEDS ORDERED: ASPIRIN 81 MG TABLET, CHEWABLE PO ONE (14:28)
--- NOTE | 2016-12-28 14:41 | ER Document Report ---
ED Medical Screen (RME) - General Mode of Arrival: Wheelchair Information source: Patient TRAVEL OUTSIDE OF THE [place] IN LAST 30 DAYS: No - HPI Onset: Other - 3 days ago - General Chief Complaint: Shortness Of Breath Stated Complaint: SHORTNESS OF BREATH/CHEST PAIN Time Seen by Provider: 12/28/16 14:22 Notes: Patient is a 76 year old female with a history of [place], presents to the emergency department complaining of shortness of breath onset 3 days ago. Patient states that she also has associated symptoms of headaches, tiredness, chest tightness, pain in her arms , as well as cough and chills. Patient denies fevers or wheezing. Patient has a defibrillator and pacemaker. (VIC[employer]E VIDAL) - Related Data Allergies/Adverse Reactions: No Known Allergies Allergy (Verified 12/28/16 13:33) Past Medical History - General Information source: Patient - Social History Cigarette use (# per day): No Chew tobacco use (# tins/day): No Frequency of alcohol use: None - Past Medical History Cardiac Medical History: Reports: Hx Coronary Artery Disease, Hx Heart Attack, Hx Hypercholesterolemia, Hx Hypertension Pulmonary Medical History: Reports: Hx COPD Renal/ Medical History: Denies: Hx Peritoneal Dialysis GI Medical History: Reports: Hx Gastroesophageal Reflux Disease Psychiatric Medical History: Reports: Hx Anxiety, Hx Depression Past Surgical History: Reports: Hx Cardiac Catheterization, Hx Hysterectomy - Immunizations Hx Diphtheria, Pertussis, Tetanus Vaccination: No Review of Systems - Review of Systems Constitutional: See HPI, Chills EENT: No symptoms reported Cardiovascular: See HPI, Chest pain Respiratory: See HPI, Short of breath Gastrointestinal: No symptoms reported Genitourinary: No symptoms reported Female Genitourinary: No symptoms reported Musculoskeletal: Other - pain in arms Skin: No symptoms reported Hematologic/Lymphatic: No symptoms reported Neurological/Psychological: No symptoms reported -: Yes All other systems reviewed and negative Physical Exam - General General appearance: Appears well, Alert In distress: None - HEENT Head: Normocephalic, Atraumatic Pupils: PERRL - Respiratory Respiratory status: No respiratory distress Breath sounds: Normal Chest palpation: Normal - Cardiovascular Rhythm: Regular Heart sounds: Normal auscultation Murmur: No Friction rub: No Gallop: None auscultated - Abdominal Inspection: Normal Distension: No distension Bowel sounds: Normal Tenderness: Nontender Organomegaly: No organomegaly - Psychological Associated symptoms: Normal affect, Normal mood - Skin Skin Temperature: Warm Skin Moisture: Dry - Vital signs Vitals: Temp Pulse Resp BP Pulse Ox 98.4 F 82 17 154/78 H 100 12/28/16 13:33 12/28/16 13:33 12/28/16 13:33 12/28/16 13:33 12/28/16 13:33 - Vital Signs Vital signs: Temp Pulse Resp BP Pulse Ox 98.4 F 82 17 154/78 H 100 12/28/16 13:33 12/28/16 13:33 12/28/16 13:33 12/28/16 13:33 12/28/16 13:33 Scribe Documentation - Scribe Written by Alyssa:: Alyssa Britton, 12/28/2016 Preeti acting as scribe for :: Preeti
[2016-12-28 15:12] LABS: ABSOLUTE EOSINOPHILS # (AUTO) 0.1 10^3/uL (0.0-0.6); ABSOLUTE LYMPHOCYTES (AUTO) 1.7 10^3/uL (0.5-4.7); ABSOLUTE MONOCYTES (AUTO) 0.2 10^3/uL (0.1-1.4); ABSOLUTE NEUT (AUTO) 1.9 10^3/uL (1.7-8.2); BASOPHILS % (AUTO) 1.1 % (0-2); EOSINOPHILS % (AUTO) 3.3 % (0-6); HEMOGLOBIN 14.3 g/dL (12.0-15.5); HGB HCT DIFFERENCE -0.1; LYMPHOCYTES % (AUTO) 42.5 % (13-45); MEAN CORPUSCULAR HEMOGLOBIN 30.7 pg (27.0-33.4); MEAN CORPUSCULAR HGB CONC 33.3 g/dL (32.0-36.0); MEAN CORPUSCULAR VOLUME 92 fl (80-97); RED BLOOD COUNT 4.66 10^6/uL (3.72-5.28); RED CELL DISTRIBUTION WIDTH 13.9 % (11.5-14.0); SEGMENTED NEUTROPHILS % (AUTO) 47.1 % (42-78); WHITE BLOOD COUNT 4.1 10^3/uL (4.0-10.5)
[2016-12-28 15:29] LABS: ALANINE AMINOTRANSFERASE 43 U/L (9-52); ALBUMIN 4.3 g/dL (3.5-5.0); ALKALINE PHOSPHATASE 118 U/L (38-126); ANION GAP 13 (5-19); ASPARTATE AMINO TRANSFERASE 29 U/L (14-36); BILIRUBIN,DIRECT 0.4 mg/dL (0.0-0.4); BILIRUBIN,TOTAL 0.5 mg/dL (0.2-1.3); BLOOD UREA NITROGEN 23 mg/dL (7-20); CALCIUM 10.4 mg/dL (8.4-10.2); CARBON DIOXIDE 26 mmol/L (22-30); CHLORIDE 105 mmol/L (98-107); CREATINE KINASE 86 U/L (30-135); CREATININE RESULT 1.16 mg/dL (0.52-1.25); GLUCOSE 89 mg/dL (75-110); POTASSIUM 4.4 mmol/L (3.6-5.0); SODIUM 144.1 mmol/L (137-145); TOTAL PROTEIN 7.2 g/dL (6.3-8.2)
--- NOTE | 2016-12-28 15:31 | RADIOLOGY REPORT (SQ) ---
EXAM DESCRIPTION: CHEST SINGLE VIEW COMPLETED DATE/TIME: 12/28/2016 3:18 pm REASON FOR STUDY: chest pain, SOB, cough COMPARISON: 09/03/2016 EXAM PARAMETERS: NUMBER OF VIEWS: One view. TECHNIQUE: Single frontal radiographic view of the chest acquired. RADIATION DOSE: NA LIMITATIONS: None. FINDINGS: LUNGS AND PLEURA: No opacities, masses or pneumothorax. No pleural effusion. MEDIASTINUM AND HILAR STRUCTURES: No masses. Contour normal. HEART AND VASCULAR STRUCTURES: Heart normal in size. Normal vasculature. BONES: No acute findings. HARDWARE: Pacemaker/defibrillator. Sternotomy wires. Graft markers. OTHER: No other significant finding. IMPRESSION: NO ACUTE RADIOGRAPHIC FINDING IN THE CHEST. TECHNICAL DOCUMENTATION: JOB ID: [id number] [email or web address]- All Rights Reserved
[2016-12-28 15:42] LABS: CREATINE KINASE MB 0.53 ng/mL (<4.55)
[2016-12-28 15:45] LABS: TROPONIN I < 0.012 ng/mL
--- NOTE | 2016-12-28 16:53 | ER Document Report ---
ED Respiratory Problem - General Chief Complaint: Shortness Of Breath Stated Complaint: SHORTNESS OF BREATH/CHEST PAIN Time Seen by Provider: 12/28/16 14:22 Mode of Arrival: Wheelchair Information source: Patient TRAVEL OUTSIDE OF THE [place] IN LAST 30 DAYS: No - HPI Patient complains to provider of: Cough, Short of breath Onset: Other - 2 days Duration: Continuous Quality of pain: Achy Severity: Mild Short of Breath: Mild Chest pain/discomfort: Tightness Cough: Productive Sputum amount: Small Sputum color: White Sputum consistency: Mucoid Associated symptoms: Chills, Cough, Headache, Short of breath Similar symptoms previously: Yes Recently seen / treated by doctor: No Notes: Patient is a 76-year-old female with significant coronary artery disease history with an [place], AICD/pacemaker, triple bypass, and hypertension, presenting to the emergency room complaining of productive cough for the past 2-3 days, with whitish colored phlegm, feeling tired with generalized weakness and shortness of breath, pain near her pacemaker, and her left arm feels tired, she also complains of a headache and chest tightness, as well as chills, denies any leg pain, no sick contacts, no fever - Related Data Allergies/Adverse Reactions: No Known Allergies Allergy (Verified 12/28/16 13:33) Past Medical History - General Information source: Patient - Social History Smoking Status: Former Smoker Cigarette use (# per day): No Chew tobacco use (# tins/day): No Frequency of alcohol use: None Family History: Arthritis, CAD, COPD, Hypertension Patient has suicidal ideation: No Patient has homicidal ideation: No - Past Medical History Cardiac Medical History: Reports: Hx Coronary Artery Disease, Hx Heart Attack, Hx Hypercholesterolemia, Hx Hypertension Pulmonary Medical History: Reports: Hx COPD Renal/ Medical History: Denies: Hx Peritoneal Dialysis GI Medical History: Reports: Hx Gastroesophageal Reflux Disease Psychiatric Medical History: Reports: Hx Anxiety, Hx Depression Past Surgical History: Reports: Hx Cardiac Catheterization, Hx Hysterectomy - Immunizations Hx Diphtheria, Pertussis, Tetanus Vaccination: No Hx Pneumococcal Vaccination: 02/11/09 Review of Systems - Review of Systems Constitutional: See HPI EENT: No symptoms reported Cardiovascular: See HPI Respiratory: See HPI Gastrointestinal: No symptoms reported Genitourinary: No symptoms reported Female Genitourinary: No symptoms reported Musculoskeletal: No symptoms reported Skin: No symptoms reported Hematologic/Lymphatic: No symptoms reported Neurological/Psychological: See HPI -: Yes All other systems reviewed and negative Physical Exam - Vital signs Vitals: Temp Pulse Resp BP Pulse Ox 98.4 F 82 17 154/78 H 100 12/28/16 13:33 12/28/16 13:33 12/28/16 13:33 12/28/16 13:33 12/28/16 13:33 Interpretation: Normal - General General appearance: Appears well, Alert - HEENT Head: Normocephalic, Atraumatic Eyes: Normal Pupils: PERRL - Respiratory Respiratory status: No respiratory distress Chest status: Nontender Breath sounds: Normal Chest palpation: Normal - Cardiovascular Rhythm: Regular Heart sounds: Normal auscultation Murmur: No - Abdominal Inspection: Normal Distension: No distension Bowel sounds: Normal Tenderness: Nontender Organomegaly: No organomegaly - Back Back: Normal, Nontender - Extremities General upper extremity: Normal inspection, Nontender, Normal color, Normal ROM , Normal temperature General lower extremity: Normal inspection, Nontender, Normal color, Normal ROM , Normal temperature, Normal weight bearing. No: Kel's sign - Neurological Neuro grossly intact: Yes Cognition: Normal Orientation: AAOx4 [place] Coma Scale Eye Opening: Spontaneous [place] Coma Scale Verbal: Oriented [place] Coma Scale Motor: Obeys Commands [place] Coma Scale Total: 15 Speech: Normal Motor strength normal: LUE, RUE, LLE, RLE Sensory: Normal - Psychological Associated symptoms: Normal affect, Normal mood - Skin Skin Temperature: Warm Skin Moisture: Dry Skin Color: Normal Course - Re-evaluation Re-evalutation: 12/28/16 17:09 Patient resting comfortably at this time, lab and imaging findings were reviewed which are unremarkable, she question whether she may have the flu, therefore flu testing has been ordered, we will also obtain a second set of cardiac enzymes around 6:30 PM, anticipate likely discharge if those are negative and patient continues to remain stable 12/28/16 19:48 Lab and imaging findings discussed with patient and son at bedside which are unremarkable, symptoms consistent with likely viral upper respiratory illness, patient will be discharged with instructions for follow-up and advised to return if any worsening symptoms or additional concerns, patient acknowledges understanding and agreement with this plan - Vital Signs Vital signs: Temp Pulse Resp BP Pulse Ox 98.4 F 82 17 154/78 H 100 12/28/16 13:33 12/28/16 13:33 12/28/16 13:33 12/28/16 13:33 12/28/16 13:33 - Laboratory Result Diagrams: 12/28/16 14:35 12/28/16 14:35 Laboratory results interpreted by me: 12/28/16 14:35 BUN 23 H Est GFR ( Amer) 55 L Est GFR (Non-Af Amer) 46 L Calcium 10.4 H - Diagnostic Test Radiology reviewed: Image reviewed, Reports reviewed - EKG Interpretation by Me Heart block present: 1st Degree When compared to previous EKG there are: No significant change Additional EKG results interpreted by me: 12/28/16 17:10 Atrial paced rhythm, rate 67, LVH, first-degree AV block Discharge - Discharge Clinical Impression: SOB (shortness of breath), Atypical chest pain Condition: Stable Disposition: HOME, SELF-CARE Instructions: Chest Pain of Unclear Cause ([facility]) Additional Instructions: Follow up with your primary care provider in one to 2 days. Return to the emergency room immediately if symptoms worsen or any additional concerns. Referrals: ROCKY HALE MD [Primary Care Provider] - Follow up as needed
[2016-12-28 21:40] VITALS: BP 162/80
--- NOTE | 2016-12-28 22:52 | EKG REPORT ---
SEVERITY:- ABNORMAL ECG - ATRIAL-PACED COMPLEXES FIRST DEGREE AV BLOCK LEFT VENTRICULAR HYPERTROPHY CONSIDER INFERIOR INFARCT : Confirmed by: Ham Monteiro 28-Dec-2016 22:50:58
--- NOTE | 2016-12-28 22:52 | EKG REPORT ---
SEVERITY:- ABNORMAL ECG - ATRIAL-PACED COMPLEXES PROBABLE LEFT ATRIAL ABNORMALITY LVH WITH SECONDARY REPOLARIZATION ABNORMALITY : Confirmed by: Ham Monteiro 28-Dec-2016 22:51:11
== END 2016-12-28 20:46 | disposition home or self-care (01) ==
LOC: ER 13:16
DX: R06.02 Shortness of breath (principal); R07.89 Other chest pain; I25.10 Atherosclerotic heart disease of native coronary artery without angina pectoris; I25.2 Old myocardial infarction; I10 Essential (primary) hypertension; R05 Cough; R53.1 Weakness; Z95.1 Presence of aortocoronary bypass graft
CPT/HCPCS: 93005; 99285; 36415; 82553; 82550; 85025; 80053; 84484; 87804; 71010; 93010; A9270

== ENCOUNTER 2017-02-03 22:27 | Emergency (ER) | payer MEDICARE, OTHER ==
--- NOTE | 2017-02-03 23:27 | ER Document Report ---
ED General - General Chief Complaint: Pain All Over Stated Complaint: BODYACHES Time Seen by Provider: 02/03/17 23:14 Notes: Patient is a very pleasant 76-year-old female presents with complaint of some body aches, low-grade fevers at home, nasal congestion, sinus pain and headache. She is also had a cough and says that recently she has had some mucus production with her cough. No dysuria. No abdominal pain. No chest pain. No shortness of breath. No extremity swelling. No vomiting. She does have history of coronary artery disease does have a pacemaker in place. She says her symptoms have been ongoing for 2 days. Headache has gradually worsened with sinus congestion. No focal neurologic deficits. TRAVEL OUTSIDE OF THE [place] IN LAST 30 DAYS: No - Related Data Allergies/Adverse Reactions: No Known Allergies Allergy (Verified 02/03/17 22:32) Past Medical History - Social History Smoking Status: Never Smoker Frequency of alcohol use: None Drug Abuse: None Family History: Arthritis, CAD, COPD, Hypertension - Past Medical History Cardiac Medical History: Reports: Hx Coronary Artery Disease, Hx Heart Attack, Hx Hypercholesterolemia, Hx Hypertension Pulmonary Medical History: Reports: Hx COPD Renal/ Medical History: Denies: Hx Peritoneal Dialysis GI Medical History: Reports: Hx Gastroesophageal Reflux Disease Psychiatric Medical History: Reports: Hx Anxiety, Hx Depression Past Surgical History: Reports: Hx Cardiac Catheterization, Hx Hysterectomy - Immunizations Hx Diphtheria, Pertussis, Tetanus Vaccination: No Hx Pneumococcal Vaccination: 02/11/09 Review of Systems - Review of Systems Notes: My Normal Review Basic REVIEW OF SYSTEMS: CONSTITUTIONAL : Negative fevers. EENT: Nasal congestion. CARDIOVASCULAR: Denies chest pain. RESPIRATORY: Denies cough, cold, or chest congestion. Denies shortness of breath, difficulty breathing, or wheezing. GASTROINTESTINAL: Denies abdominal pain. Denies nausea, vomiting, or diarrhea. Denies constipation. Last BM: GENITOURINARY: Denies difficulty urinating, painful urination, burning, frequency, or blood in urine. MUSCULOSKELETAL: Denies neck or back pain or joint pain or swelling. SKIN: Denies rash or skin lesions. HEMATOLOGIC : Denies easy bruising or bleeding. NEUROLOGICAL: Denies altered mental status or loss of consciousness. Has a headache. Denies weakness or paralysis or loss of use of either side. Denies problems with gait or speech. Denies sensory or motor loss. ALL OTHER SYSTEMS REVIEWED AND NEGATIVE. Physical Exam - Vital signs Vitals: Temp Pulse Resp BP Pulse Ox 98.1 F 82 18 124/65 97 02/03/17 22:44 02/03/17 22:44 02/03/17 22:44 02/03/17 22:44 02/03/17 22:44 - Notes Notes: General Appearance: Well nourished, alert, cooperative, no acute distress, no obvious discomfort. Well-appearing. Vitals: reviewed, See vital signs table. Head: no swelling or tenderness to the head Eyes: PERRL, EOMI, Conjuctiva clear Mouth: No decreasd moisture Throat: No tonsillar inflammation, No airway obstruction, No lymphadenopathy Ears: Clear fluid behind bilateral tympanic membranes without redness or swelling of the TMs. Neck: Supple, no neck tenderness Lungs: No wheezing, No rales, No rhonci, No accessory muscle use, good air exchange bilaterally. Heart: Normal rate, Regular rythm, No murmur, no rub Abdomen: Normal BS, soft, No rigidity, No abdominal tenderness, No guarding, no rebound, no abdominal masses, no organomegaly Extremities: strength 5/5 in all extremities, good pulses in all extremities, no swelling or tenderness in the extremities, no edema. Skin: warm, dry, appropriate color, no rash Neuro: speech clear, oriented x 3, normal affect, responds appropriately to questions. Renal nerves II through XII are intact. Distal sensation intact. Patient moves all extremities without difficulty. Course - Re-evaluation Re-evalutation: 02/04/17 00:51 I went back and talked the patient again with all her results are negative. I did readdress her headache and her congestion. Her son now says that her congestion is actually been there for 3 months. The patient says the headache is more in the last 2 days. She says she has a hard time telling if there actually related if. She says hard to tell if the headache is coming from her sinuses. She says is not severe but it does bother her some. I told her I still do not suspect subarachnoid hemorrhage and that the headache is gradually worsened over a long period time however at her age being that she has had a continued headache we can do a head CT as she had initially requested.. Patient is agreeable to this as she did initially request a head CT. We will do a CT scan as she had initially requested. 02/04/17 01:33 CT scan is negative. I suspect it was like the patient probably has a viral type illness being that her headache started with body aches and also she has had increased cough production over last 2 days. She also had a subjective fever at home. I did explain this to her and her son. There is still concern that she has had nasal congestion for almost 3 months. Being that she is now having fevers and some productive cough I did talk to him about the option of starting a trial of an antibiotic versus the following up with her doctor. I informed him the risks of antibiotics such as allergic reaction, diarrhea, nausea and vomiting. They said they would like to trial the antibiotic. I have given her a dose of azithromycin here and I will prescribe the remainder of the course. Also talked to the patient about trying Motrin as well as Tylenol for headache. I will give her a dose of Motrin here. I did review her previous records. Her serum creatinine a month ago was 1.1. I will have her take 400 mg of ibuprofen every 6 hours with food if the Tylenol is not working for headache. Patient clinically looks very well. She is awake alert does not appear to be in any distress. I feel that she is safe to be discharged home. Strongly encourage her to return to ER immediately if she has worsening headache , fevers, or feel unwell. Informed her she should be seeing some improvement in 2 days. Informed her if she still has a headache or does not feel well after 2 days and she needs to to follow-up with her doctor come back to the ER for reevaluation. Patient and family member agree with plan and she will be discharged home. Dictation of this chart was performed using voice recognition software; therefore, there may be some unintended grammatical errors. - Vital Signs Vital signs: Temp Pulse Resp BP Pulse Ox 98.1 F 82 18 124/65 97 02/03/17 22:44 02/03/17 22:44 02/03/17 22:44 02/03/17 22:44 02/03/17 22:44 - Laboratory Laboratory results interpreted by me: 02/03/17 23:47 Urine Blood SMALL H Urine Urobilinogen 4.0 H Ur Leukocyte Esterase SMALL H - EKG Interpretation by Me Additional EKG results interpreted by me: 02/03/17 23:44 EKG is reviewed and interpreted by me. EKG shows atrially paced rhythm with a rate of 64 bpm. There is [address] segment elevation. Patient has very mild ST segment depression in the lateral precordial leads is unchanged from her old EKG on December 28, 2016. Patient also has some T-wave inversions in leads II, III and aVF again unchanged from her previous EKG from December 28, 2016. WI interval, QRS duration, QTc intervals are within normal range. Discharge - Discharge Clinical Impression: Congestion of nasal sinus, Body aches Headache Qualifiers: Headache type: unspecified Headache chronicity pattern: acute headache Intractability: not intractable Qualified Code(s): R51 - Headache Condition: Good Disposition: HOME, SELF-CARE Additional Instructions: I suspect that most likely your headache and body aches with the fever at home is likely related to a virus. You have had congestion for 3 months and therefore we discussed the option of a trial of an antibiotic. We will go forward with a trial of an antibiotic. Please stop the antibiotic immediately if you start having nausea and vomiting, diarrhea, or feel that you are becoming worse. Please return to ER immediately if you have worsening headache , vomiting, recurrent fevers, or do not feel well. Please return to the ER or follow-up with your doctor in 2 days if you continue to have any headache. Please follow-up with your doctor within 3-4 days regardless if you are still having symptoms or not so he can reevaluate you. Please take Tylenol first for your headache. If Tylenol is not working then you can try Motrin 400 mg. Always take it with food. Do not take the Motrin more than once every 6 hours. Prescriptions: Azithromycin 250 mg PO DAILY #4 tablet Referrals: ROCKY HALE MD [Primary Care Provider] - 02/06/17
--- NOTE | 2017-02-04 00:27 | RADIOLOGY REPORT (SQ) ---
EXAM DESCRIPTION: CHEST SINGLE VIEW CLINICAL HISTORY: 76 years, Female, cough COMPARISON: None. LIMITATIONS: None. FINDINGS: Moderate hyperinflation, mild interstitial markings, normal cardiac silhouette size, left cardiac stimulation device and leads, and median sternotomy. Mild levo convexity. IMPRESSION: No acute cardiopulmonary findings. 2011 [employer]- All Rights Reserved
[2017-02-04 00:30] LABS: BILIRUBIN,URINE NEGATIVE (NEGATIVE); GLUCOSE, URINE NEGATIVE (NEGATIVE); KETONES,URINE NEGATIVE (NEGATIVE); LEUKOCYTE ESTERASE,URINE SMALL (NEGATIVE); NITRITE,URINE NEGATIVE (NEGATIVE); PROTEIN,URINE NEGATIVE (NEGATIVE); URINE SPECIFIC GRAVITY 1.015
[2017-02-04 00:34] LABS: APPEARANCE,URINE CLEAR
--- NOTE | 2017-02-04 01:08 | RADIOLOGY REPORT (SQ) ---
EXAM DESCRIPTION: CT HEAD WITHOUT CLINICAL HISTORY: 76 years Female, headache COMPARISON: None. TECHNIQUE: No contrast. This exam was performed according to our departmental dose-optimization program, which includes automated exposure control, adjustment of the mA and/or kV according to patient size and/or use of iterative reconstruction technique. FINDINGS: Brain parenchyma appears intact. No hemorrhage or infarct. No mass, mass effect, or midline shift. Atherosclerosis. Extra-axial structures appear otherwise grossly intact. IMPRESSION: No acute findings.
[2017-02-04] MEDS ORDERED: AZITHROMYCIN 250 MG TABLET PO ONE (01:23)
[2017-02-04] MEDS ORDERED: IBUPROFEN 400 MG TABLET PO ONE (01:23)
[2017-02-04 01:52] VITALS: BP 151/70
--- NOTE | 2017-02-04 06:05 | EKG REPORT ---
SEVERITY:- ABNORMAL ECG - ATRIAL-PACED COMPLEXES PROBABLE LEFT ATRIAL ABNORMALITY PROBABLE LVH WITH SECONDARY REPOL ABNRM PROBABLE INFERIOR INFARCT, AGE INDETERMINATE : Confirmed by: Bridger Mclaughlin MD 04-Feb-2017 06:04:01
== END 2017-02-04 01:50 | disposition home or self-care (01) ==
LOC: ER 22:27
DX: R09.81 Nasal congestion (principal); M79.1 Myalgia; R51 Headache; R50.9 Fever, unspecified; R05 Cough
CPT/HCPCS: 93005; 99284; 81001; 87804; 71010; 70450; 93010; A9270 ×2; J3490

== ENCOUNTER → 2017-03-29 | Outpatient (CLI) | payer MEDICARE, OTHER ==
[2017-03-29 09:45] LABS: HEMATOCRIT 39.6 % (36.0-47.0); HEMOGLOBIN 12.9 g/dL (12.0-15.5); MEAN CORPUSCULAR HEMOGLOBIN 30.2 pg (27.0-33.4); MEAN CORPUSCULAR HGB CONC 32.5 g/dL (32.0-36.0); MEAN CORPUSCULAR VOLUME 93 fl (80-97); PLATELET COUNT 183 10^3/uL (150-450); RED BLOOD COUNT 4.25 10^6/uL (3.72-5.28); RED CELL DISTRIBUTION WIDTH 14.1 % (11.5-14.0); WHITE BLOOD COUNT 3.5 10^3/uL (4.0-10.5)
[2017-03-29 09:48] LABS: APPEARANCE,URINE SLIGHTLY-CLOUDY; BILIRUBIN,URINE NEGATIVE (NEGATIVE); COLOR,URINE YELLOW; GLUCOSE, URINE NEGATIVE (NEGATIVE); KETONES,URINE NEGATIVE (NEGATIVE); LEUKOCYTE ESTERASE,URINE TRACE (NEGATIVE); NITRITE,URINE NEGATIVE (NEGATIVE); PROTEIN,URINE NEGATIVE (NEGATIVE); UROBILINOGEN,URINE NEGATIVE mg/dL (<2.0)
[2017-03-29 10:16] LABS: ANION GAP 12 (5-19); BLOOD UREA NITROGEN 20 mg/dL (7-20); CALCIUM 10.1 mg/dL (8.4-10.2); CARBON DIOXIDE 23 mmol/L (22-30); CHLORIDE 108 mmol/L (98-107); GLUCOSE 138 mg/dL (75-110); POTASSIUM 3.9 mmol/L (3.6-5.0); SODIUM 142.5 mmol/L (137-145)
== END ==
LOC: OD 08:55
PROVIDERS: ATTEND Internal Medicine Nephrology
DX: I13.0 Hypertensive heart and chronic kidney disease with heart failure and stage 1 through stage 4 chronic kidney disease, or unspecified chronic kidney disease (principal); N18.3 Chronic kidney disease, stage 3 (moderate); I50.9 Heart failure, unspecified
CPT/HCPCS: 36415; 80048; 81001; 83735; 85027

== ENCOUNTER → 2017-11-19 | Outpatient (CLI) | payer MEDICARE ==
[2017-11-19 09:56] LABS: HEMATOCRIT 42.1 % (36.0-47.0); HEMOGLOBIN 13.7 g/dL (12.0-15.5); MEAN CORPUSCULAR HEMOGLOBIN 29.3 pg (27.0-33.4); MEAN CORPUSCULAR HGB CONC 32.6 g/dL (32.0-36.0); MEAN CORPUSCULAR VOLUME 90 fl (80-97); PLATELET COUNT 201 10^3/uL (150-450); RED BLOOD COUNT 4.68 10^6/uL (3.72-5.28); RED CELL DISTRIBUTION WIDTH 13.8 % (11.5-14.0); WHITE BLOOD COUNT 3.2 10^3/uL (4.0-10.5)
[2017-11-19 10:22] LABS: APPEARANCE,URINE CLEAR; BILIRUBIN,URINE NEGATIVE (NEGATIVE); COLOR,URINE STRAW; GLUCOSE, URINE NEGATIVE (NEGATIVE); KETONES,URINE NEGATIVE (NEGATIVE); LEUKOCYTE ESTERASE,URINE NEGATIVE (NEGATIVE); NITRITE,URINE NEGATIVE (NEGATIVE); PROTEIN,URINE NEGATIVE (NEGATIVE); UROBILINOGEN,URINE NEGATIVE mg/dL (<2.0)
[2017-11-19 10:24] LABS: ANION GAP 10 (5-19); BLOOD UREA NITROGEN 13 mg/dL (7-20); CALCIUM 10.1 mg/dL (8.4-10.2); CARBON DIOXIDE 27 mmol/L (22-30); CHLORIDE 106 mmol/L (98-107); GLUCOSE 60 mg/dL (75-110); SODIUM 143.2 mmol/L (137-145)
[2017-11-19 10:25] LABS: URINE SPECIFIC GRAVITY 1.006
== END ==
LOC: OD 09:05
PROVIDERS: ATTEND Internal Medicine Nephrology
DX: I13.0 Hypertensive heart and chronic kidney disease with heart failure and stage 1 through stage 4 chronic kidney disease, or unspecified chronic kidney disease (principal); N18.3 Chronic kidney disease, stage 3 (moderate); I50.9 Heart failure, unspecified
CPT/HCPCS: 36415; 80048; 81001; 85027

== ENCOUNTER 2018-02-07 09:27 | Emergency (ER) | payer MEDICARE ==
[2018-02-07 09:33] VITALS: BP 142/72
--- NOTE | 2018-02-07 09:47 | ER Document Report ---
ED Medical Screen (RME) - General Chief Complaint: Congestion Stated Complaint: SHORT OF BREATH Time Seen by Provider: 02/07/18 09:43 Notes: Patient says she is been experiencing difficulty breathing for the past couple of days. She has a history of COPD, but is not on any current breathing treatments, etc. for this condition. She has had a cough that was more productive but less so now.'s says it "feels like it settling in". Has not had any fever. No chest pains. Patient has a history of coronary bypass surgery about 4 years ago. Hypertension. High cholesterol. Not diabetic. TRAVEL OUTSIDE OF THE [place] IN LAST 30 DAYS: No - Related Data Allergies/Adverse Reactions: No Known Allergies Allergy (Verified 02/07/18 09:28) Past Medical History - Past Medical History Cardiac Medical History: Reports: Hx Coronary Artery Disease, Hx Heart Attack, Hx Hypercholesterolemia, Hx Hypertension Pulmonary Medical History: Reports: Hx COPD Renal/ Medical History: Denies: Hx Peritoneal Dialysis GI Medical History: Reports: Hx Gastroesophageal Reflux Disease Psychiatric Medical History: Reports: Hx Anxiety, Hx Depression Past Surgical History: Reports: Hx Cardiac Catheterization, Hx Hysterectomy - Immunizations Hx Diphtheria, Pertussis, Tetanus Vaccination: No Physical Exam - Vital signs Vitals: Temp Pulse Resp BP Pulse Ox 97.7 F 87 16 142/72 H 98 02/07/18 09:32 02/07/18 09:32 02/07/18 09:32 02/07/18 09:32 02/07/18 09:32 Course - Vital Signs Vital signs: Temp Pulse Resp BP Pulse Ox 97.7 F 87 16 142/72 H 98 02/07/18 09:32 02/07/18 09:32 02/07/18 09:32 02/07/18 09:32 02/07/18 09:32 Doctor's Discharge - Discharge Referrals: Moncho BROWN MD [Primary Care Provider] - Follow up as needed
[2018-02-07 10:20] LABS: ABSOLUTE EOSINOPHILS # (AUTO) 0.2 10^3/uL (0.0-0.6); ABSOLUTE LYMPHOCYTES (AUTO) 1.5 10^3/uL (0.5-4.7); ABSOLUTE MONOCYTES (AUTO) 0.3 10^3/uL (0.1-1.4); ABSOLUTE NEUT (AUTO) 2.8 10^3/uL (1.7-8.2); BASOPHILS % (AUTO) 0.9 % (0-2); HEMATOCRIT 42.4 % (36.0-47.0); HEMOGLOBIN 13.9 g/dL (12.0-15.5); LYMPHOCYTES % (AUTO) 30.5 % (13-45); MEAN CORPUSCULAR HEMOGLOBIN 29.5 pg (27.0-33.4); MEAN CORPUSCULAR HGB CONC 32.7 g/dL (32.0-36.0); MEAN CORPUSCULAR VOLUME 90 fl (80-97); MONOCYTES % (AUTO) 6.9 % (3-13); PLATELET COUNT 183 10^3/uL (150-450); RED CELL DISTRIBUTION WIDTH 13.9 % (11.5-14.0); SEGMENTED NEUTROPHILS % (AUTO) 57.7 % (42-78); TOTAL CELLS COUNTED % (AUTO) 100 %; WHITE BLOOD COUNT 4.9 10^3/uL (4.0-10.5)
[2018-02-07 10:35] LABS: APPEARANCE,URINE CLEAR; BILIRUBIN,URINE NEGATIVE (NEGATIVE); COLOR,URINE YELLOW; GLUCOSE, URINE NEGATIVE (NEGATIVE); KETONES,URINE NEGATIVE (NEGATIVE); LEUKOCYTE ESTERASE,URINE NEGATIVE (NEGATIVE); NITRITE,URINE NEGATIVE (NEGATIVE); PROTEIN,URINE NEGATIVE (NEGATIVE); UROBILINOGEN,URINE NEGATIVE mg/dL (<2.0)
--- NOTE | 2018-02-07 10:35 | RADIOLOGY REPORT (SQ) ---
EXAM DESCRIPTION: CHEST 2 VIEWS COMPLETED DATE/TIME: 02/07/2018 10:23 am REASON FOR STUDY: short of breath COMPARISON: 12/28/2016 EXAM PARAMETERS: NUMBER OF VIEWS: two views TECHNIQUE: Digital Frontal and Lateral radiographic views of the chest acquired. RADIATION DOSE: NA LIMITATIONS: none FINDINGS: LUNGS AND PLEURA: No opacities, masses or pneumothorax. No pleural effusion. MEDIASTINUM AND HILAR STRUCTURES: No masses or contour abnormalities. HEART AND VASCULAR STRUCTURES: Heart normal size. No evidence for failure. BONES: No acute findings. HARDWARE: CABG. Defibrillator. OTHER: No other significant finding. IMPRESSION: NO ACUTE RADIOGRAPHIC FINDING IN THE CHEST. TECHNICAL DOCUMENTATION: JOB ID: [id number] [employer]- All Rights Reserved Reading location - IP/workstation name: [email or web address]
[2018-02-07 10:45] LABS: ALANINE AMINOTRANSFERASE 18 U/L (9-52); ALBUMIN 3.8 g/dL (3.5-5.0); ALKALINE PHOSPHATASE 145 U/L (38-126); ANION GAP 8 (5-19); ASPARTATE AMINO TRANSFERASE 25 U/L (14-36); BILIRUBIN,DIRECT 0.2 mg/dL (0.0-0.4); BILIRUBIN,TOTAL 0.4 mg/dL (0.2-1.3); BLOOD UREA NITROGEN 19 mg/dL (7-20); CALCIUM 9.5 mg/dL (8.4-10.2); CARBON DIOXIDE 26 mmol/L (22-30); CHLORIDE 110 mmol/L (98-107); GLUCOSE 85 mg/dL (75-110); SODIUM 143.7 mmol/L (137-145); TOTAL PROTEIN 6.7 g/dL (6.3-8.2)
[2018-02-07 10:57] LABS: CREATINE KINASE MB 0.62 ng/mL (<4.55); NT PRO BNP 250 pg/mL (<450)
[2018-02-07 10:58] LABS: TROPONIN I < 0.012 ng/mL
[2018-02-07] MEDS ORDERED: IPRATROPIUM/ALBUTEROL 0.5-2.5 MG/3 ML AMPUL NEB ONE (11:18)
[2018-02-07] MEDS ORDERED: ALBUTEROL SULFATE HFA (90 MCG/PUFF) 8 GM MDI (1 MDI/ER DISP) IH ONE (12:24)
--- NOTE | 2018-02-07 12:24 | ER Document Report ---
ED General - General Chief Complaint: Congestion Stated Complaint: SHORT OF BREATH Time Seen by Provider: 02/07/18 09:43 TRAVEL OUTSIDE OF THE [place] IN LAST 30 DAYS: No - HPI Patient complains to provider of: Congestion shortness of breath Notes: Patient coming in for congestion shortness of breath patient was seen by our pit provider note is provided below Patient says she is been experiencing difficulty breathing for the past couple of days. She has a history of COPD, but is not on any current breathing treatments, etc. for this condition. She has had a cough that was more productive but less so now.'s says it "feels like it settling in". Has not had any fever. No chest pains. Patient has a history of coronary bypass surgery about 4 years ago. Hypertension. High cholesterol. Not diabetic. Upon my evaluation patient is resting comfortably no signs of any obvious distress. Patient denies any antibiotics. Patient states that she actually has inhalers at home however has not been using them because she thinks they had . Patient denies any chest pain fevers chills nausea vomiting abdominal pain A brief review of the patient's medical records available in [employer] was performed - Related Data Allergies/Adverse Reactions: No Known Allergies Allergy (Verified 02/07/18 09:28) Past Medical History - Social History Smoking Status: Unknown if Ever Smoked Family History: Arthritis, CAD, COPD, Hypertension Patient has suicidal ideation: No Patient has homicidal ideation: No - Past Medical History Cardiac Medical History: Reports: Hx Coronary Artery Disease, Hx Heart Attack, Hx Hypercholesterolemia, Hx Hypertension Pulmonary Medical History: Reports: Hx COPD Renal/ Medical History: Denies: Hx Peritoneal Dialysis GI Medical History: Reports: Hx Gastroesophageal Reflux Disease Psychiatric Medical History: Reports: Hx Anxiety, Hx Depression Past Surgical History: Reports: Hx Cardiac Catheterization, Hx Hysterectomy - Immunizations Hx Diphtheria, Pertussis, Tetanus Vaccination: No Hx Pneumococcal Vaccination: 02/11/09 Review of Systems - Review of Systems Constitutional: No symptoms reported EENT: No symptoms reported Cardiovascular: No symptoms reported Respiratory: Short of breath, Wheezing Gastrointestinal: No symptoms reported Genitourinary: No symptoms reported Female Genitourinary: No symptoms reported Musculoskeletal: No symptoms reported Skin: No symptoms reported Hematologic/Lymphatic: No symptoms reported Neurological/Psychological: No symptoms reported -: Yes All other systems reviewed and negative Physical Exam - Vital signs Vitals: Temp Pulse Resp BP Pulse Ox 97.7 F 87 16 142/72 H 98 02/07/18 09:32 02/07/18 09:32 02/07/18 09:32 02/07/18 09:32 02/07/18 09:32 Interpretation: Normal - General General appearance: Appears well, Alert - HEENT Head: Normocephalic, Atraumatic Eyes: Normal Pupils: PERRL - Respiratory Respiratory status: No respiratory distress Chest status: Nontender Breath sounds: Wheezing Chest palpation: Normal - Cardiovascular Rhythm: Regular Heart sounds: Normal auscultation Murmur: No - Abdominal Inspection: Normal Distension: No distension Bowel sounds: Normal Tenderness: Nontender Organomegaly: No organomegaly - Back Back: Normal, Nontender - Extremities General upper extremity: Normal inspection, Nontender, Normal color, Normal ROM, Normal temperature General lower extremity: Normal inspection, Nontender, Normal color, Normal ROM, Normal temperature, Normal weight bearing. No: Kel's sign - Neurological Neuro grossly intact: Yes Cognition: Normal Orientation: AAOx4 [place] Coma Scale Eye Opening: Spontaneous [place] Coma Scale Verbal: Oriented [place] Coma Scale Motor: Obeys Commands [place] Coma Scale Total: 15 Speech: Normal Motor strength normal: LUE, RUE, LLE, RLE Sensory: Normal - Psychological Associated symptoms: Normal affect, Normal mood - Skin Skin Temperature: Warm Skin Moisture: Dry Skin Color: Normal Course - Re-evaluation Re-evalutation: 02/07/18 15:18 Patient coming in for cough congestion laboratory studies showed no signs of CHF cardiac damage EKGs not show any acute changes patient had improvement of her symptoms after breathing treatment. More likely underlying viral bronchitis for her symptoms. Do not see a need for antibiotics at this time. Patient will be discharged home with a inhaler patient is encouraged to use this along with [id number] Mucinex to help out with her cough production - Vital Signs Vital signs: Temp Pulse Resp BP Pulse Ox 97.7 F 87 16 142/72 H 98 02/07/18 09:32 02/07/18 09:32 02/07/18 09:32 02/07/18 09:32 02/07/18 09:32 - Laboratory Result Diagrams: 02/07/18 10:06 02/07/18 10:06 Laboratory results interpreted by me: 02/07/18 02/07/18 10:06 10:06 Chloride 110 H Est GFR ( Amer) 55 L Est GFR (Non-Af Amer) 45 L Alkaline Phosphatase 145 H Urine Blood SMALL H Discharge - Discharge Clinical Impression: Viral bronchitis Condition: Good Disposition: HOME, SELF-CARE Instructions: Bronchitis ([facility]) Additional Instructions: Your chest x-ray does not show any signs of pneumonia your laboratory studies congestive heart failure heart damage or significant infection I would highly recommend she follow-up with your primary care physician please use the inhaler that we gave you here in ER 2 puffs every 4 hours as needed for any shortness of breath. Would also recommend [id number] Mucinex please make sure you drink plenty fluids to stay well-hydrated return to ER symptoms worsen. Referrals: Moncho BROWN MD [ACTIVE STAFF] - Follow up as needed
--- NOTE | 2018-02-07 15:08 | EKG REPORT ---
SEVERITY:- ABNORMAL ECG - ATRIAL-PACED COMPLEXES LVH WITH SECONDARY REPOLARIZATION ABNORMALITY : Confirmed by: Ham Monteiro 07-Feb-2018 15:08:00
== END 2018-02-07 12:45 | disposition home or self-care (01) ==
LOC: ER 09:27
DX: J20.8 Acute bronchitis due to other specified organisms (principal); R06.02 Shortness of breath; I10 Essential (primary) hypertension; I25.10 Atherosclerotic heart disease of native coronary artery without angina pectoris; J44.9 Chronic obstructive pulmonary disease, unspecified; E78.00 Pure hypercholesterolemia, unspecified; Z95.1 Presence of aortocoronary bypass graft; I25.2 Old myocardial infarction; Z90.710 Acquired absence of both cervix and uterus
CPT/HCPCS: 93005; 94640; 99284; 36415; 82553; 85025; 80053; 81001; 84484; 83880; 71046; 93010; J3490; A9270; J7620

== ENCOUNTER 2018-12-02 00:21 | Emergency (ER) | payer BC, MEDICARE ==
[2018-12-02] MEDS ORDERED: ASPIRIN 81 MG TABLET, CHEWABLE PO ONE (02:08)
[2018-12-02 03:42] LABS: ABSOLUTE EOSINOPHILS # (AUTO) 0.1 10^3/uL (0.0-0.6); ABSOLUTE LYMPHOCYTES (AUTO) 1.5 10^3/uL (0.5-4.7); ABSOLUTE MONOCYTES (AUTO) 0.3 10^3/uL (0.1-1.4); ABSOLUTE NEUT (AUTO) 1.4 10^3/uL (1.7-8.2); BASOPHILS % (AUTO) 0.7 % (0-2); EOSINOPHILS % (AUTO) 3.3 % (0-6); HEMATOCRIT 39.7 % (36.0-47.0); HEMOGLOBIN 12.8 g/dL (12.0-15.5); LYMPHOCYTES % (AUTO) 45.5 % (13-45); MEAN CORPUSCULAR HEMOGLOBIN 28.9 pg (27.0-33.4); MEAN CORPUSCULAR HGB CONC 32.1 g/dL (32.0-36.0); MEAN CORPUSCULAR VOLUME 90 fl (80-97); MONOCYTES % (AUTO) 8.2 % (3-13); PLATELET COUNT 175 10^3/uL (150-450); RED BLOOD COUNT 4.41 10^6/uL (3.72-5.28); SEGMENTED NEUTROPHILS % (AUTO) 42.3 % (42-78); TOTAL CELLS COUNTED % (AUTO) 100 %; WHITE BLOOD COUNT 3.3 10^3/uL (4.0-10.5)
[2018-12-02 03:55] LABS: PROTHROMBIN TIME 13.2 SEC (11.4-15.4)
[2018-12-02 04:01] LABS: ALBUMIN 3.9 g/dL (3.5-5.0); ALKALINE PHOSPHATASE 129 U/L (38-126); ANION GAP 9 (5-19); ASPARTATE AMINO TRANSFERASE 26 U/L (14-36); BILIRUBIN,DIRECT 0.1 mg/dL (0.0-0.4); BILIRUBIN,TOTAL 0.4 mg/dL (0.2-1.3); BLOOD UREA NITROGEN 18 mg/dL (7-20); CALCIUM 9.9 mg/dL (8.4-10.2); CARBON DIOXIDE 25 mmol/L (22-30); CHLORIDE 108 mmol/L (98-107); CREATINE KINASE 111 U/L (30-135); GLUCOSE 96 mg/dL (75-110); POTASSIUM 4.1 mmol/L (3.6-5.0)
--- NOTE | 2018-12-02 04:04 | RADIOLOGY REPORT (SQ) ---
EXAM DESCRIPTION: CT HEAD WITHOUT IV CONTRAST COMPLETED DATE/TME: 12/02/2018 02:09 CLINICAL HISTORY: 78 years, Female, LIGHTHEADED/WEAKNESS COMPARISON: 02/04/17 TECHNIQUE: Axial CT images of the brain were obtained without contrast. DLP [id number]. Images stored on PACS. All CT scanners at this facility use dose modulation, iterative reconstruction, and/or weight based dosing when appropriate to reduce radiation dose to as low as reasonably achievable (ALARA). [facility]: Dose Right [facility]: CareDose [facility]: Dose Right [facility]: Teradose 4D [facility]: [employer] LIMITATIONS: None. FINDINGS: There is no acute cortical infarct, hemorrhage, edema, hydrocephalus, mass, or extra-axial fluid collection. Stephens-white matter differentiation is preserved. There is mild diffuse cerebral atrophy with mild periventricular and deep white matter microvascular changes. The paranasal sinuses and mastoid air cells are clear. No acute fracture. IMPRESSION: No acute intracranial abnormality. TECHNICAL DOCUMENTATION: Quality ID # [id number]: Final reports with documentation of one or more dose reduction techniques (e.g., Automated exposure control, adjustment of the mA and/or kV according to patient size, use of iterative reconstruction technique) copyright 2010 [employer]- All Rights Reserved
[2018-12-02 04:08] LABS: APPEARANCE,URINE CLEAR; BILIRUBIN,URINE NEGATIVE (NEGATIVE); COLOR,URINE YELLOW; GLUCOSE, URINE NEGATIVE (NEGATIVE); KETONES,URINE NEGATIVE (NEGATIVE); LEUKOCYTE ESTERASE,URINE NEGATIVE (NEGATIVE); NITRITE,URINE NEGATIVE (NEGATIVE); PROTEIN,URINE NEGATIVE (NEGATIVE); URINE SPECIFIC GRAVITY 1.012
--- NOTE | 2018-12-02 04:09 | RADIOLOGY REPORT (SQ) ---
EXAM DESCRIPTION: XR CHEST 2 VIEWS COMPLETED DATE/TME: 12/02/2018 02:08 CLINICAL HISTORY: 78 years Female, SOB COMPARISON: None. NUMBER OF VIEWS/TECHNIQUE: 2, Frontal, Lateral FINDINGS: Increased lung volume, clear parenchyma, normal cardiac silhouette, and intact bony thorax.Atherosclerotic vascular disease. Left cardiac stimulator with leads. Sternotomy. Cardiac/mediastinal hardware/clips. IMPRESSION: No acute cardiopulmonary findings.
[2018-12-02 04:12] LABS: CREATINE KINASE MB 0.95 ng/mL (<4.55); NT PRO BNP 664 pg/mL (<450)
[2018-12-02 04:18] LABS: TROPONIN I < 0.012 ng/mL
--- NOTE | 2018-12-02 05:29 | ER Document Report ---
ED Blood Pressure Problem - General Chief Complaint: Chest Pain Stated Complaint: BLOOD PRESSURE ISSUES Time Seen by Provider: 12/02/18 01:51 Primary Care Provider: DORINA GIBSON NP [Primary Care Provider] - Follow up as needed Notes: Patient is a 78-year-old female presents to the emergency department for multiple complaints. Patient voices she felt lightheaded and had generalized weakness and felt "restless". Patient states she took her home blood pressure and it was elevated. Patient's also complaining of generalized pain in the left side of her neck and her left shoulder more so on upon palpation and when she turns her neck. States she has had the pain intermittently for the last 2 days. Patient's denying any fevers, URI symptoms, nausea, vomiting, diarrhea. She is denying any headache, chest pain, shortness of breath, numbness or tingling in any extremity, unilateral weakness. Patient's son is in the room denying any change in the patient's speech. Patient's denying any rash. Patient voices she has been taking her medications as prescribed. Medications: Albuterol, nitroglycerin, atorvastatin, carvedilol, losartan, Ativan, HCTZ, amitriptyline Allergies: None Patient does have a history of a CABG in 2013, also has a pacemaker defibrillator. TRAVEL OUTSIDE OF THE [place] IN LAST 30 DAYS: No - Related Data Allergies/Adverse Reactions: No Known Allergies Allergy (Verified 12/02/18 01:14) Past Medical History - General Information source: Patient - Social History Smoking Status: Former Smoker Chew tobacco use (# tins/day): No Frequency of alcohol use: None Drug Abuse: None Family History: Arthritis, CAD, COPD, Hypertension Patient has suicidal ideation: No Patient has homicidal ideation: No - Past Medical History Cardiac Medical History: Reports: Hx Coronary Artery Disease, Hx Heart Attack, Hx Hypercholesterolemia, Hx Hypertension Pulmonary Medical History: Reports: Hx COPD Renal/ Medical History: Denies: Hx Peritoneal Dialysis GI Medical History: Reports: Hx Gastroesophageal Reflux Disease Psychiatric Medical History: Reports: Hx Anxiety, Hx Depression Past Surgical History: Reports: Hx Cardiac Catheterization, Hx Hysterectomy - Immunizations Hx Diphtheria, Pertussis, Tetanus Vaccination: No Hx Pneumococcal Vaccination: 02/11/09 Review of Systems - Review of Systems Constitutional: denies: Fever EENT: No symptoms reported Cardiovascular: See HPI Respiratory: See HPI Gastrointestinal: No symptoms reported Genitourinary: No symptoms reported Female Genitourinary: No symptoms reported Musculoskeletal: See HPI Skin: No symptoms reported Hematologic/Lymphatic: No symptoms reported Neurological/Psychological: See HPI. denies: Headaches Physical Exam - Vital signs Vitals: Temp Pulse Resp BP Pulse Ox 97.5 F 92 20 174/88 H 99 12/02/18 00:36 12/02/18 00:36 12/02/18 00:36 12/02/18 00:36 12/02/18 00:36 - Notes Notes: GENERAL: Alert, interacts well. No acute distress. HEAD: Normocephalic, atraumatic. EYES: Pupils equal, round, and reactive to light. Extraocular movements intact. ENT: Oral mucosa moist, tongue midline. NECK: Full range of motion. Supple. Trachea midline. No nuchal rigidity noted. Pain upon palpation left sternocleidomastoid muscle into the left trapezius muscle. Pain upon lateral rotation of the neck. LUNGS: Clear to auscultation bilaterally, no wheezes, rales, or rhonchi. No respiratory distress. HEART: Regular rate and rhythm. No murmur ABDOMEN: Soft, non-tender. Non-distended. Bowel sounds present in all 4 quadrants. EXTREMITIES: Moves all 4 extremities spontaneously. No edema, normal radial and dorsalis pedis pulses bilaterally. No cyanosis. 5 out of 5 strength noted all 4 extremities. slight pain in anterior shoulder on movement of left shoulder. BACK: no cervical, thoracic, lumbar midline tenderness. No saddle anesthesia, normal distal neurovascular exam. NEUROLOGICAL: Alert and oriented x3. Normal speech. cranial nerves II through XII grossly intact PSYCH: Normal affect, normal mood. SKIN: Warm, dry, normal turgor. No rashes or lesions noted. Course - Re-evaluation Re-evalutation: 12/02/18 05:32 Laboratory 12/02/18 12/02/18 12/02/18 02:58 02:58 02:58 WBC 3.3 L RBC 4.41 Hgb 12.8 Hct 39.7 MCV 90 MCH 28.9 MCHC 32.1 RDW 14.0 Plt Count 175 Lymph % (Auto) 45.5 H [place] % (Auto) 8.2 Eos % (Auto) 3.3 Baso % (Auto) 0.7 Absolute Neuts (auto) 1.4 L Absolute Lymphs (auto) 1.5 Absolute Monos (auto) 0.3 Absolute Eos (auto) 0.1 Absolute Basos (auto) 0.0 Seg Neutrophils % 42.3 PT 13.2 INR 1.00 Sodium 141.8 Potassium 4.1 Chloride 108 H Carbon Dioxide 25 Anion Gap 9 BUN 18 Creatinine 1.08 Est GFR ( Amer) > 60 Est GFR (MDRD) Non-Af 49 L Glucose 96 Calcium 9.9 Total Bilirubin 0.4 Direct Bilirubin 0.1 Neonat Total Bilirubin Not Reportable Neonat Direct Bilirubin Not Reportable Neonat Indirect Bili Not Reportable AST 26 ALT 15 Alkaline Phosphatase 129 H Creatine Kinase 111 CK-MB (CK-2) Troponin I NT-Pro-B Natriuret Pep Total Protein 7.0 Albumin 3.9 Urine Color Urine Appearance Urine pH Ur Specific Coral Urine Protein Urine Glucose (UA) Urine Ketones Urine Blood Urine Nitrite Urine Bilirubin Urine Urobilinogen Ur Leukocyte Esterase Urine WBC (Auto) Urine RBC (Auto) Squamous Epi Cells Auto Urine Mucus (Auto) Urine Ascorbic Acid 12/02/18 12/02/18 02:58 03:32 WBC RBC Hgb Hct MCV MCH MCHC RDW Plt Count Lymph % (Auto) [place] % (Auto) Eos % (Auto) Baso % (Auto) Absolute Neuts (auto) Absolute Lymphs (auto) Absolute Monos (auto) Absolute Eos (auto) Absolute Basos (auto) Seg Neutrophils % PT INR Sodium Potassium Chloride Carbon Dioxide Anion Gap BUN Creatinine Est GFR ( Amer) Est GFR (MDRD) Non-Af Glucose Calcium Total Bilirubin Direct Bilirubin Neonat Total Bilirubin Neonat Direct Bilirubin Neonat Indirect Bili AST ALT Alkaline Phosphatase Creatine Kinase CK-MB (CK-2) 0.95 Troponin I < 0.012 NT-Pro-B Natriuret Pep 664 H Total Protein Albumin Urine Color YELLOW Urine Appearance CLEAR Urine pH 5.0 Ur Specific [place] 1.012 Urine Protein NEGATIVE Urine Glucose (UA) NEGATIVE Urine Ketones NEGATIVE Urine Blood SMALL H Urine Nitrite NEGATIVE Urine Bilirubin NEGATIVE Urine Urobilinogen 2.0 H Ur Leukocyte Esterase NEGATIVE Urine WBC (Auto) 1 Urine RBC (Auto) 5 Squamous Epi Cells Auto 3 Urine Mucus (Auto) RARE Urine Ascorbic Acid NEGATIVE Chest X-Ray 12/02/18 02:08 IMPRESSION: No acute cardiopulmonary findings. Head CT 12/02/18 02:09 IMPRESSION: No acute intracranial abnormality. TECHNICAL DOCUMENTATION: Quality ID # 436: Final reports with documentation of one or more dose reduction techniques (e.g., Automated exposure control, adjustment of the mA and/or kV according to patient size, use of iterative reconstruction technique) copyright 2011 [employer]- All Rights Reserved EKG shows atrial paced complexes a rate of 72, QTc 399, unchanged from prior. read by Dr. Mcdaniels. Spoke with Navi Palumbo from [employer] who stated interrogation was WNL. Patient's blood pressure has come down to 143/75 without treatments. Patient voices she overall feels "so much better." Patient's denying any lightheadedness, weakness, dizziness. She continues to deny any chest pain or shortness of breath. Patient voices her neck feels "okay when I keep it still." Discussed use of Tylenol for muscular pain. Patient's testing shows no overt abnormalities. I discussed with patient her need to follow-up with her primary care provider this morning. Discussed making sure she continues to watch her blood pressure at home as well as taking her home medications as prescribed. Close return precautions discussed. Patient stable for discharge. - Vital Signs Vital signs: Temp Pulse Resp BP Pulse Ox 97.5 F 92 22 H 166/78 H 99 12/02/18 00:36 12/02/18 00:36 12/02/18 03:01 12/02/18 03:00 12/02/18 03:01 - Laboratory Result Diagrams: 12/02/18 02:58 12/02/18 02:58 Laboratory results interpreted by me: 12/02/18 12/02/18 12/02/18 02:58 02:58 02:58 WBC 3.3 L Lymph % (Auto) 45.5 H Absolute Neuts (auto) 1.4 L Chloride 108 H Est GFR (MDRD) Non-Af 49 L Alkaline Phosphatase 129 H NT-Pro-B Natriuret Pep 664 H Urine Blood Urine Urobilinogen 12/02/18 03:32 WBC Lymph % (Auto) Absolute Neuts (auto) Chloride Est GFR (MDRD) Non-Af Alkaline Phosphatase NT-Pro-B Natriuret Pep Urine Blood SMALL H Urine Urobilinogen 2.0 H Discharge - Discharge Clinical Impression: Lightheaded, Neck pain Hypertension Qualifiers: Hypertension type: unspecified Qualified Code(s): I10 - Essential (primary) hypertension Condition: Stable Disposition: HOME, SELF-CARE Additional Instructions: As we discussed you have been seen and treated in the emergency department for multiple complaints. Your work-up is benign. Please make sure you are taking your blood pressure medication as prescribed. Please also make sure you follow- up with your primary care provider this morning. Please immediately return to the emergency department should you have any concerns. Forms: Elevated Blood Pressure Referrals: DORINA GIBSON NP [Primary Care Provider] - Follow up as needed
[2018-12-02 06:32] VITALS: BP 143/75
--- NOTE | 2018-12-02 09:28 | EKG REPORT ---
SEVERITY:- ABNORMAL ECG - ATRIAL-PACED COMPLEXES PROBABLE LVH WITH SECONDARY REPOL ABNRM : Confirmed by: Alexandra Garvin MD 02-Dec-2018 09:27:17
== END 2018-12-02 05:45 | disposition home or self-care (01) ==
LOC: ER 00:21
DX: R42 Dizziness and giddiness (principal); M54.2 Cervicalgia; R07.9 Chest pain, unspecified; I10 Essential (primary) hypertension; R53.1 Weakness; I25.10 Atherosclerotic heart disease of native coronary artery without angina pectoris; E78.00 Pure hypercholesterolemia, unspecified; I25.2 Old myocardial infarction; Z90.710 Acquired absence of both cervix and uterus; Z95.1 Presence of aortocoronary bypass graft
CPT/HCPCS: 36415; 70450; 71046; 80053; 81001; 82550; 82553; 83880; 84484; 85025; 85610; 93005; 93010; 99284

== ENCOUNTER 2019-03-28 07:56 | Emergency (ER) | payer BC, MEDICARE, OTHER ==
[2019-03-28 09:03] LABS: ABSOLUTE EOSINOPHILS # (AUTO) 0.1 10^3/uL (0.0-0.6); ABSOLUTE MONOCYTES (AUTO) 0.6 10^3/uL (0.1-1.4); ABSOLUTE NEUT (AUTO) 4.8 10^3/uL (1.7-8.2); BASOPHILS % (AUTO) 0.4 % (0-2); HEMOGLOBIN 12.9 g/dL (12.0-15.5); LYMPHOCYTES % (AUTO) 15.4 % (13-45); MEAN CORPUSCULAR HEMOGLOBIN 28.9 pg (27.0-33.4); MEAN CORPUSCULAR HGB CONC 32.3 g/dL (32.0-36.0); MEAN CORPUSCULAR VOLUME 90 fl (80-97); MONOCYTES % (AUTO) 9.3 % (3-13); PLATELET COUNT 191 10^3/uL (150-450); RED BLOOD COUNT 4.47 10^6/uL (3.72-5.28); RED CELL DISTRIBUTION WIDTH 13.7 % (11.5-14.0); SEGMENTED NEUTROPHILS % (AUTO) 72.9 % (42-78); TOTAL CELLS COUNTED % (AUTO) 100 %; WHITE BLOOD COUNT 6.5 10^3/uL (4.0-10.5)
--- NOTE | 2019-03-28 09:14 | RADIOLOGY REPORT (SQ) ---
EXAM DESCRIPTION: CHEST SINGLE VIEW COMPLETED DATE/TIME: 03/28/2019 9:03 am REASON FOR STUDY: chest pain/ shortness of breath COMPARISON: 2019 FINDINGS: One view chest AP portable upright. No acute cardiopulmonary disease. Stable appearance with normal cardiomediastinal silhouette. Status post CABG. Transvenous pacer rem ains in place. No pneumothorax. No evidence of congestive failure or pneumonia. TECHNICAL DOCUMENTATION: JOB ID: [id number] Reading location - IP/workstation name: [email or web address]
[2019-03-28 09:21] LABS: ALBUMIN 4.1 g/dL (3.5-5.0); ALKALINE PHOSPHATASE 133 U/L (38-126); ANION GAP 13 (5-19); ASPARTATE AMINO TRANSFERASE 26 U/L (14-36); BILIRUBIN,DIRECT 0.3 mg/dL (0.0-0.4); BILIRUBIN,TOTAL 0.6 mg/dL (0.2-1.3); BLOOD UREA NITROGEN 21 mg/dL (7-20); CALCIUM 9.7 mg/dL (8.4-10.2); CARBON DIOXIDE 22 mmol/L (22-30); CHLORIDE 105 mmol/L (98-107); CREATINE KINASE 115 U/L (30-135); GLUCOSE 144 mg/dL (75-110); POTASSIUM 3.8 mmol/L (3.6-5.0); TOTAL PROTEIN 7.8 g/dL (6.3-8.2)
[2019-03-28 09:33] LABS: CREATINE KINASE MB 0.44 ng/mL (<4.55)
[2019-03-28 09:34] LABS: TROPONIN I < 0.012 ng/mL
[2019-03-28] MEDS ORDERED: CETIRIZINE 10 MG TABLET PO ONE (09:45)
--- NOTE | 2019-03-28 10:08 | ER Document Report ---
ED Cardiac - General Chief Complaint: Chest Pain Stated Complaint: CHEST PAIN Time Seen by Provider: 03/28/19 08:42 Primary Care Provider: DORINA GIBSON NP [Primary Care Provider] - Follow up as needed Notes: Patient is a 78-year-old female who presents to the emergency department with a chief complaint of chest pain. Patient states that it feels like a pressure feeling in her mid substernal chest. Patient has had upper respiratory symptoms for the past 3 days. She was seen by her primary care provider and was placed on Levaquin 2 days ago. Patient has also been coughing and has had some rhinorrhea. States that she also has pain in her left jainism area. She has also had on and off fevers. Patient has a past medical history of an NV in 2013, CHF, hypertension, depression, and hyperlipidemia. TRAVEL OUTSIDE OF THE [place] IN LAST 30 DAYS: No - Related Data Allergies/Adverse Reactions: latex Allergy (Verified 03/28/19 08:09) Past Medical History - Social History Smoking Status: Unknown if Ever Smoked Chew tobacco use (# tins/day): No Frequency of alcohol use: None Drug Abuse: None Family History: Arthritis, CAD, COPD, Hypertension Patient has suicidal ideation: No Patient has homicidal ideation: No - Past Medical History Cardiac Medical History: Reports: Hx Congestive Heart Failure, Hx Coronary Artery Disease, Hx Heart Attack, Hx Hypercholesterolemia, Hx Hypertension Pulmonary Medical History: Reports: Hx COPD Renal/ Medical History: Denies: Hx Peritoneal Dialysis GI Medical History: Reports: Hx Gastroesophageal Reflux Disease Psychiatric Medical History: Reports: Hx Anxiety, Hx Depression Past Surgical History: Reports: Hx Cardiac Catheterization, Hx Cardiac Surgery - quadruple bypass 2013, Hx Hysterectomy - Immunizations Hx Diphtheria, Pertussis, Tetanus Vaccination: No Hx Pneumococcal Vaccination: 02/11/09 Review of Systems - Review of Systems Notes: REVIEW OF SYSTEMS: CONSTITUTIONAL : Denies recent illness. Denies recent unintentional weight loss. Denies fever, chills, or sweats. EENT: See HPI. CARDIOVASCULAR: See HPI. RESPIRATORY: Denies shortness of breath, cough, congestion, difficulty breathing, or wheezing. GASTROINTESTINAL: Denies nausea, vomiting, and diarrhea. Denies abdominal pain. Denies constipation. GENITOURINARY: Denies difficulty urinating, burning, blood in urine, urgency or frequency. MUSCULOSKELETAL: Denies neck and back pain. Denies joint pain or swelling. SKIN: Denies rash, itchiness, or lesions HEMATOLOGIC : Denies easy bruising or bleeding. LYMPHATIC: Denies swollen, painful, enlarged glands. NEUROLOGICAL: Denies no numbness or tingling denies weakness. Denies headache. Denies altered mental status. Denies alteration in speech. PSYCHIATRIC: Denies stress, anxiety, alteration in sleep patterns, or depression. All other systems reviewed and negative. Physical Exam - Vital signs Vitals: Temp Pulse Resp BP Pulse Ox 98.2 F 72 16 117/54 L 97 03/28/19 08:07 03/28/19 08:07 03/28/19 08:07 03/28/19 08:07 03/28/19 08:07 - Notes Notes: PHYSICAL EXAMINATION: GENERAL: Appears well, healthy, well-nourished, no acute distress. HEAD: Normocephalic, atraumatic. EYES: PERRL, conjunctiva normal, all extraocular movements intact, sclera nonicteric ENT: Moist mucous membranes. Edema and erythema noted to nasal mucosa. Rhinorrhea noted. Tympanic membranes clear, noninjected. NECK: Supple, no noticeable swelling, redness, rash. Normal range of motion. LUNGS: Equal breath sounds bilaterally and clear to auscultation. No wheezes rales or rhonchi. CARDIOVASCULAR: S1-S2, regular rate, regular rhythm. Radial pulses 2+, normal. ABDOMEN: Normoactive bowel sounds. Soft, nontender, no guarding, no rebound tenderness, and no masses palpated. EXTREMITIES: Normal strength and range of motion, no pitting or edema. No cyanosis. NEUROLOGICAL: Moves all extremities upon command. Strength 5/5 in all extremities. PSYCH: Normal mood, normal affect. SKIN: Warm, dry. No rash, lesions, ulcerations noted. Normal skin turgor. Course - Re-evaluation Re-evalutation: 03/28/19 12:49 Patient states that she feels better after receiving the cetirizine. Hematology is unremarkable. Patient has an elevated BUN and creatinine, which is chronic. Her troponin and BNP are normal. Repeat troponin was also normal. Influenza a and B are negative. Patient will be sent home with Flonase and cetirizine. She will follow-up with her primary care provider. I advised her to continue her Levaquin. She is in agreement with this plan. Follow-up precautions were given. Verbal discharge instructions were given to the patient. They verbalized understanding. They are stable for discharge. - Vital Signs Vital signs: Temp Pulse Resp BP Pulse Ox 98.2 F 72 22 H 141/65 H 98 03/28/19 08:07 03/28/19 08:07 03/28/19 11:01 03/28/19 11:01 03/28/19 10:02 - Laboratory Result Diagrams: 03/28/19 08:40 03/28/19 08:40 Laboratory results interpreted by me: 03/28/19 08:40 BUN 21 H Creatinine 1.32 H Est GFR ( Amer) 47 L Est GFR (MDRD) Non-Af 39 L Glucose 144 H Alkaline Phosphatase 133 H Discharge - Discharge Clinical Impression: Rhinorrhea, Cough, Nasal congestion Chest pain Qualifiers: Chest pain type: unspecified Qualified Code(s): R07.9 - Chest pain, unspecified Condition: Stable Disposition: HOME, SELF-CARE Additional Instructions: You were seen today in the emergency department for chest pain. Your chest pain work-up was normal. You are most likely having chest pain from your cough. Please use cetirizine and Flonase, the medications prescribed to you to help with your congestion and runny nose. Please follow-up with your primary care provider. Continue your Levaquin, which is your antibiotic. If you have worsening symptoms, develop shortness of breath, or have any symptoms that are worrisome to you, please return to the emergency department. Prescriptions: Cetirizine HCl [All Day Allergy] 10 mg PO DAILY #5 tablet Fluticasone Propionate [Flonase Nasal Sinking Spring 50 Mcg/Sinking [place] 16 gm] 2 sprays NASL DAILY #1 inhaler Referrals: DORINA GIBSON NP [Primary Care Provider] - Follow up in 3-5 days
--- NOTE | 2019-03-28 10:27 | EKG REPORT ---
SEVERITY:- ABNORMAL ECG - ATRIAL-PACED COMPLEXES LVH WITH SECONDARY REPOLARIZATION ABNORMALITY : Confirmed by: Bridger Mclaughlin MD 28-Mar-2019 10:26:59
[2019-03-28 10:36] LABS: A TYPE INFLUENZA AG NEGATIVE (NEGATIVE); B INFLUENZA AG NEGATIVE (NEGATIVE)
[2019-03-28 13:12] VITALS: BP 141/60
== END 2019-03-28 13:11 | disposition home or self-care (01) ==
LOC: ER 07:56
DX: R07.2 Precordial pain (principal); R05 Cough; J34.89 Other specified disorders of nose and nasal sinuses; R09.81 Nasal congestion; R51 Headache; I25.2 Old myocardial infarction; I10 Essential (primary) hypertension; I25.10 Atherosclerotic heart disease of native coronary artery without angina pectoris; J44.9 Chronic obstructive pulmonary disease, unspecified; Z95.1 Presence of aortocoronary bypass graft
CPT/HCPCS: 93005; 99285; 36415; 82553; 82550; 85025; 80053; 84484; 87804; 83880; 71045; 93010; A9270

== ENCOUNTER 2019-04-04 19:08 | Emergency (ER) | payer MEDICARE ==
[2019-04-04 19:39] VITALS: BP 143/71
[2019-04-04] MEDS ORDERED: NORMAL SALINE 250 ML IV ONE (20:12)
--- NOTE | 2019-04-04 20:15 | ER Document Report ---
ED Medical Screen (RME) - General Chief Complaint: Vomiting/Diarrhea Stated Complaint: VOMITING Time Seen by Provider: 04/04/19 20:05 Primary Care Provider: DORINA GIBSON NP [Primary Care Provider] - Follow up as needed Mode of Arrival: Ambulatory Information source: Patient Notes: 78-year-old female patient presenting to the emergency department with what sounds like flulike symptoms. Patient reports cold chills, nausea, vomiting, diarrhea and body aches. Patient however reports that she is also had pain in her left shoulder and states that she feels similar to when she had a heart attack back in 2013. Lung sounds clear and equal bilaterally, heart sounds S1-S2 present, normal rate, normal rhythm, no acute distress noted. I have greeted and performed a rapid initial assessment of this patient. A comprehensive ED assessment and evaluation of the patient, analysis of test results and completion of the medical decision making process will be conducted by additional ED providers. I have specifically instructed the patient or family members with the patient to immediately return to any nursing staff should anything change in the patient's condition or with their chief complaint. TRAVEL OUTSIDE OF THE [place] IN LAST 30 DAYS: No - Related Data Allergies/Adverse Reactions: latex Allergy (Verified 04/04/19 20:05) Past Medical History - Past Medical History Cardiac Medical History: Reports: Hx Congestive Heart Failure, Hx Coronary Artery Disease, Hx Heart Attack, Hx Hypercholesterolemia, Hx Hypertension Pulmonary Medical History: Reports: Hx COPD Renal/ Medical History: Denies: Hx Peritoneal Dialysis GI Medical History: Reports: Hx Gastroesophageal Reflux Disease Psychiatric Medical History: Reports: Hx Anxiety, Hx Depression Past Surgical History: Reports: Hx Cardiac Catheterization, Hx Cardiac Surgery - quadruple bypass 2013, Hx Hysterectomy - Immunizations Hx Diphtheria, Pertussis, Tetanus Vaccination: No Physical Exam - Vital signs Vitals: Temp Pulse Resp BP Pulse Ox 97.9 F 76 20 143/71 H 100 04/04/19 19:37 04/04/19 19:37 04/04/19 19:37 04/04/19 19:37 04/04/19 19:37 Course - Vital Signs Vital signs: Temp Pulse Resp BP Pulse Ox 97.9 F 76 20 143/71 H 100 04/04/19 19:37 04/04/19 19:37 04/04/19 19:37 04/04/19 19:37 04/04/19 19:37 Doctor's Discharge - Discharge Referrals: DORINA GIBSON NP [Primary Care Provider] - Follow up as needed
--- NOTE | 2019-04-04 21:07 | RADIOLOGY REPORT (SQ) ---
XR CHEST 2 VIEWS CLINICAL STATEMENT: vomiting/L shoulder pain COMPARISON: 03/28/2019 FINDINGS: Heart is mildly enlarged. Status post median sternotomy. Left chest pacemaker/AICD device. No pneumothorax. Lungs are clear. No pleural effusions. IMPRESSION: No acute disease. No change.
[2019-04-04 21:21] LABS: ABSOLUTE EOSINOPHILS # (AUTO) 0.1 10^3/uL (0.0-0.6); ABSOLUTE LYMPHOCYTES (AUTO) 2.6 10^3/uL (0.5-4.7); ABSOLUTE MONOCYTES (AUTO) 0.4 10^3/uL (0.1-1.4); ABSOLUTE NEUT (AUTO) 4.8 10^3/uL (1.7-8.2); BASOPHILS % (AUTO) 0.5 % (0-2); EOSINOPHILS % (AUTO) 1.1 % (0-6); HEMATOCRIT 41.8 % (36.0-47.0); HEMOGLOBIN 13.6 g/dL (12.0-15.5); LYMPHOCYTES % (AUTO) 32.5 % (13-45); MEAN CORPUSCULAR HGB CONC 32.6 g/dL (32.0-36.0); MEAN CORPUSCULAR VOLUME 89 fl (80-97); MONOCYTES % (AUTO) 4.5 % (3-13); PLATELET COUNT 227 10^3/uL (150-450); RED BLOOD COUNT 4.69 10^6/uL (3.72-5.28); RED CELL DISTRIBUTION WIDTH 13.9 % (11.5-14.0); SEGMENTED NEUTROPHILS % (AUTO) 61.4 % (42-78); TOTAL CELLS COUNTED % (AUTO) 100 %; WHITE BLOOD COUNT 7.9 10^3/uL (4.0-10.5)
[2019-04-04 21:41] LABS: A TYPE INFLUENZA AG NEGATIVE (NEGATIVE); B INFLUENZA AG NEGATIVE (NEGATIVE)
[2019-04-04 21:50] LABS: ALBUMIN 3.7 g/dL (3.5-5.0); ALKALINE PHOSPHATASE 118 U/L (38-126); ANION GAP 10 (5-19); ASPARTATE AMINO TRANSFERASE 21 U/L (14-36); BILIRUBIN,DIRECT 0.3 mg/dL (0.0-0.4); BILIRUBIN,TOTAL 0.7 mg/dL (0.2-1.3); BLOOD UREA NITROGEN 20 mg/dL (7-20); CALCIUM 9.5 mg/dL (8.4-10.2); CARBON DIOXIDE 25 mmol/L (22-30); CHLORIDE 104 mmol/L (98-107); GLUCOSE 106 mg/dL (75-110)
--- NOTE | 2019-04-04 23:22 | RADIOLOGY REPORT (SQ) ---
EXAM DESCRIPTION: Three radiographs of the left shoulder CLINICAL HISTORY: 78 years Female, pain COMPARISON: None. FINDINGS: Bone mineralization is diminished. There is narrowing of the glenohumeral joint. No definitive fracture, subluxation or dislocation. The scapula appears intact. Bladder is patent from an ICD projects over the left chest. IMPRESSION: Osteopenia. No fracture or dislocation. Probable mild degenerative arthritis.
--- NOTE | 2019-04-05 01:51 | ER Document Report ---
Entered by PRAVEEN MCCALL SCRIBE 04/04/19 2244 Acting as scribe for:EDUIN WOOTEN MD ED Flu Like - General Chief Complaint: Flu Symptoms Stated Complaint: VOMITING Time Seen by Provider: 04/04/19 20:05 Primary Care Provider: DORINA GIBSON NP [Primary Care Provider] - Follow up as needed Mode of Arrival: Ambulatory Information source: Patient Notes: This 78 year old female patient with a history of CHF, AZ, and COPD presents to the ED today with complaints of flu-like symptoms that began some time this morning. Patient reports chills, nausea, vomiting, and diarrhea. Patient notes that she vomited x2 times today and that she had x3 diarrheal episodes with loose, brown stool. Patient states that her "stomach is bubbling", but denies abdominal pain. Patient also reports left shoulder pain that feels similar to when she had a AZ in 2013. Patient states that her shoulder "aches all the time, but worsens with movement". Patient denies fall or injury to shoulder. Patient denies shortness of breath or sick contact. Patient states that she was seen here on 03/28/19 and that her flu test was negative. Patient reports that she has had a stress test done every year since her AZ which have been fine and that her next test is in April. Patient denies leg swelling or shortness of breath. Patient denies history of diabetes, CVA, or PNA. TRAVEL OUTSIDE OF THE [place] IN LAST 30 DAYS: No - Related Data Allergies/Adverse Reactions: latex Allergy (Verified 04/04/19 20:05) Past Medical History - General Information source: Patient - Social History Smoking Status: Former Smoker Cigarette use (# per day): No Chew tobacco use (# tins/day): No Smoking Education Provided: No Frequency of alcohol use: None Drug Abuse: None Lives with: Family Family History: Reviewed & Not Pertinent, Arthritis, CAD, COPD, Hypertension Patient has suicidal ideation: No Patient has homicidal ideation: No - Past Medical History Cardiac Medical History: Reports: Hx Congestive Heart Failure, Hx Coronary Artery Disease, Hx Heart Attack, Hx Hypercholesterolemia, Hx Hypertension Pulmonary Medical History: Reports: Hx COPD GI Medical History: Reports: Hx Gastroesophageal Reflux Disease Psychiatric Medical History: Reports: Hx Anxiety, Hx Depression Past Surgical History: Reports: Hx Cardiac Catheterization, Hx Cardiac Surgery - quadruple bypass 2013, Hx Hysterectomy - Immunizations Hx Diphtheria, Pertussis, Tetanus Vaccination: No Hx Pneumococcal Vaccination: 02/11/09 Review of Systems - Review of Systems Constitutional: See HPI, Chills EENT: No symptoms reported Cardiovascular: No symptoms reported Respiratory: See HPI. denies: Short of breath Gastrointestinal: See HPI, Diarrhea, Nausea, Vomiting. denies: Abdominal pain Genitourinary: No symptoms reported Female Genitourinary: No symptoms reported Musculoskeletal: See HPI. denies: Leg swelling Skin: No symptoms reported Hematologic/Lymphatic: No symptoms reported Neurological/Psychological: No symptoms reported -: Yes All other systems reviewed and negative Physical Exam - Vital signs Vitals: Temp Pulse Resp BP Pulse Ox 97.9 F 76 20 143/71 H 100 04/04/19 19:37 04/04/19 19:37 04/04/19 19:37 04/04/19 19:37 04/04/19 19:37 - General General appearance: Alert - HEENT Head: Normocephalic, Atraumatic Eyes: Normal Pupils: PERRL - Respiratory Respiratory status: No respiratory distress Chest status: Nontender Breath sounds: Normal Chest palpation: Normal - Cardiovascular Rhythm: Regular Heart sounds: Normal auscultation Murmur: No - Abdominal Inspection: Normal Distension: No distension Bowel sounds: Normal Tenderness: Nontender - Abdomen soft Organomegaly: No organomegaly - Back Back: Normal, Nontender - Extremities General upper extremity: Normal inspection General lower extremity: Normal inspection - Neurological Neuro grossly intact: Yes - Psychological Associated symptoms: Normal affect, Normal mood - Skin Skin Temperature: Warm Skin Moisture: Dry Skin Color: Normal Course - Re-evaluation Re-evalutation: 04/05/19 01:45 Patient resting comfortably not showing any signs of distress at this time. Denies any chest pain. - Vital Signs Vital signs: Temp Pulse Resp BP Pulse Ox 97.9 F 76 20 143/71 H 100 04/04/19 19:37 04/04/19 19:37 04/04/19 19:37 04/04/19 19:37 04/04/19 19:37 - Laboratory Result Diagrams: 04/04/19 21:05 04/04/19 21:05 Laboratory results interpreted by me: 04/04/19 21:05 Est GFR ( Amer) 52 L Est GFR (MDRD) Non-Af 43 L 04/05/19 01:45 Troponin has stayed flat not showing any elevation above any normal and in the abnormal range. - Diagnostic Test Radiology reviewed: Image reviewed, Reports reviewed Radiology results interpreted by me: 04/05/19 01:46 Chest x-ray no acute process pacemaker defibrillator noted in the left upper chest area. Left shoulder no acute process no fracture no dislocation. - EKG Interpretation by Me Additional EKG results interpreted by me: 04/05/19 01:46 Twelve-lead EKG done 04/04/2019 and 2014 patient's EKG shows an atrial paced rhythm rate of 72 abnormal T waves consider ischemia diffuse leads no change from 12-lead EKG done on 03/28/2019 Discharge - Discharge Clinical Impression: Acute gastroenteritis, Chest pain Condition: Good Disposition: HOME, SELF-CARE Instructions: Gastroenteritis (adult) ([facility]) Additional Instructions: Chest Pain of Unclear Cause The exact cause of your chest pain isn't clear. Fortunately, there is no evidence of a dangerous medical condition. Further testing may be required to find the source of the pain. Most often, we find that this pain is coming from the chest wall -- the muscles or rib joints in the chest. But chest pain can come from the lung and lung lining, the esophagus, the heart valves or heart lining, and even the stomach or gallbladder. Rest. Eat lightly until the pain is gone. We may prescribe medicine for pain and inflammation. You should call the physician immediately if the pain radiates to the shoulder, jaw or arms; if you start to run a fever or develop a cough; or if you develop shortness of breath, or other new or alarming symptoms. Your complaints today seem to be more left shoulder pain than chest pain. You you report that your left shoulder pain is there commonly but worse with movement. Most likely that is not a cardiac left shoulder pain more of a musculoskeletal shoulder pain I do recommend that you follow-up with your party plan demonstrator as you plan to do within a few weeks. Return to the emergency department if there is any indication that you are having chest pain that you think is angina. Prescriptions: Famotidine [Pepcid 20 mg Tablet] 20 mg PO DAILY #12 tablet Ondansetron [Zofran Odt 4 mg Tablet] 1 - 2 tab PO Q4H PRN #15 tab.rapdis PRN Reason: For Nausea/Vomiting Referrals: PAIGE,DORINA, ASSEMBLING INSPECTOR [Primary Care Provider] - Follow up as needed I personally performed the services described in the documentation, reviewed and edited the documentation which was dictated to the scribe in my presence, and it accurately records my words and actions.
--- NOTE | 2019-04-05 11:58 | EKG REPORT ---
SEVERITY:- ABNORMAL ECG - ATRIAL-PACED RHYTHM VS SINUS WITH PACING ARTIFACT ABNORMAL T, CONSIDER ISCHEMIA, DIFFUSE LEADS : Confirmed by: Ham Monteiro 05-Apr-2019 11:56:59
== END 2019-04-05 02:17 | disposition home or self-care (01) ==
LOC: ER 19:08
DX: K52.89 Other specified noninfective gastroenteritis and colitis (principal); R07.9 Chest pain, unspecified; R11.2 Nausea with vomiting, unspecified; R19.7 Diarrhea, unspecified; R10.9 Unspecified abdominal pain; M25.512 Pain in left shoulder; I25.2 Old myocardial infarction; I11.0 Hypertensive heart disease with heart failure; I50.9 Heart failure, unspecified; J44.9 Chronic obstructive pulmonary disease, unspecified; Z88.9 Allergy status to unspecified drugs, medicaments and biological substances; Z87.891 Personal history of nicotine dependence
CPT/HCPCS: 93005; 99285; 96360; 36415; 85025; 80053; 84484; 87804; 71046; 73030; 93010; J7050

== ENCOUNTER → 2019-07-17 | Outpatient (CLI) | payer MEDICARE ==
--- NOTE | 2019-07-17 10:32 | ER RDC ASSESSMENT REPORT ---
Intake - In the Last 14 days Have you traveled outside [place]?: No Have you been in close contact with someone CONFIRMED: No Worked in Healthcare?: No - Symptoms Subjective Fever([place] feverish): Yes Chills: Yes Muscule Aches: Yes Runny Nose: Yes Sore Throat: No Cough (New or worsening chronic cough): Yes --How many day(s)?: Cough in the morning only reports a bad taste in the mouth Shortness of breath: Yes --How many day(s)?: With exertion; Nausea or Vomiting: No Headache: Yes Abdominal Pain: No Diarrhea(3 or more loose stools in last 24 hours): No - Do you have any of the following Chronic lung disease: Asthma or emphysema or COPD: Yes Chronic Lung Disease Comment: Asthma and COPD Cystic Fibrosis: No Diabetes: No High Blood Pressure: Yes Cardiovascular Disease: Yes Cardiovascular Disease Comment: History of CHF has had a CABG and defibrillator Chronic Kidney Disease: No Chronic Kidney Disease Comment: Patient having back pain seeing renal doctor for possible kidney problems Chronic Liver Disease: No Chronic blood disorder like Sickle Cell Disease: No Weak immune system due to disease or medication: No Neurologic condition that limits movement: No Developmental delay - Moderate to Severe: No Recent (within past 2 weeks) or current : No Morbid Obesity (>100 pounds over ideal weight): No Obesity Comment: Height 5 feet 3 inches weight 140 pounds - Objective Temperature: 98.5 F Pulse Rate: 62 Respiratory Rate: 20 Blood Pressure: 165/73 O2 Sat by Pulse Oximetry: 98 Objective: Given above, testing performed: If Testing Performed: Test Specimen Type Sent to General - General Information source: Patient Notes: Patient started having upper respiratory symptoms about 3 weeks ago. Muscle aches runny nose cough shortness of breath with exertion reports the cough is only in the morning and does report a bad taste in her mouth. Here at [facility] today for COVID testing plans to follow-up with PCP Luisa Good later today. - Related Data Allergies/Adverse Reactions: latex Allergy (Verified 04/04/19 20:05) Past Medical History - Social History Smoking Status: Former Smoker - Quit 20 years ago Family History: Reviewed & Not Pertinent, Arthritis, CAD, COPD, Hypertension - Past Medical History Cardiac Medical History: Reports: Hx Congestive Heart Failure, Hx Coronary Artery Disease, Hx Heart Attack, Hx Hypercholesterolemia, Hx Hypertension Pulmonary Medical History: Reports: Hx COPD Renal/ Medical History: Denies: Hx Peritoneal Dialysis GI Medical History: Reports: Hx Gastroesophageal Reflux Disease Psychiatric Medical History: Reports: Hx Anxiety, Hx Depression Past Surgical History: Reports: Hx Cardiac Catheterization, Hx Cardiac Surgery - quadruple bypass 2013, Hx Hysterectomy Physical Exam - General General appearance: Appears well, Alert In distress: None Notes: PHYSICAL EXAMINATION: GENERAL: Well-appearing and in no acute distress. HEAD: Atraumatic, normocephalic. EYES: sclera anicteric, conjunctiva are normal. ENT: nares patent. Moist mucous membranes. NECK: Normal range of motion, supple without lymphadenopathy LUNGS: CTAB and equal. No wheezes rales or rhonchi. Resp even and unlabored. Lung sounds clear. HEART: Regular rate and rhythm without murmurs ABDOMEN: Soft, nontender, normal bowel sounds, no guarding. EXTREMITIES: No cyanosis. NEUROLOGICAL:. Normal speech. PSYCH: Normal mood, normal affect. SKIN: Warm, Dry, normal turgor, Diagnostic Results Laboratory Results: Patient informed of negative rapid strep and negative rapid flu results. pending strep culture pending COVID testing results. Patient provided instructions regarding COVID to include: As a person under investigation for Covid 19, the [place] department of Health and Human Services, division of public health advises you to adhere to the following guidance until your test results are reported to you. If your test result is positive, you will receive ad ditional information from your provider and your local health department at that time. Remain at home until you are cleared by the health provider or public health authorities. Keep a log of visitors to your home, notify any visitors to your home of your isolation status. If you plan to move to a new address or leave the county, notify the local health department in your County. Call your doctor or seek care if you have an urgent medical need. Before seeking medical care, call ahead to get instructions from the provider before arriving at the medical office clinic or hospital. Notify them that you are being tested for the virus that causes Covid 19 so that arrangements can be made, as necessary, to prevent transmission to others in the healthcare setting. Next, notify the local health department in your county. If a medical emergency arises and you need to call 911, inform the first responders that you are being tested for the virus that causes Covid 19. Next, notify the local health department in your county. Patient Education/Counseling Counseling/Education: Patient presents with upper respiratory symptoms worrisome for possible Covid 19. Patient does not have emergency worring symptoms such as difficulty breathing, shortness of breath, chest pain, pressure, confusion or cyanosis. Patient appears suitable for discharge. patient instructed to follow up with PCP, Luisa Isbell DIFFERENTIAL TESTER. TO ED for persistent or worsening symptoms. Patient's vital signs are stable and patient is nontoxic in appearance. Good return precautions have been discussed with patient, patient verbalized understanding and is agreeable with discharge plan of care at this time. C Discharge - Discharge Clinical Impression: COVID - 19 SCREENING Condition: Stable Disposition: Home; Selfcare
[2019-07-17 10:33] VITALS: BP 165/73
[2019-07-17 11:14] LABS: A TYPE INFLUENZA AG NEGATIVE (NEGATIVE); B INFLUENZA AG NEGATIVE (NEGATIVE)
== END ==
LOC: RDC 09:36
PROVIDERS: ATTEND Nurse Practitioner Family
DX: Z20.828 Contact with and (suspected) exposure to other viral communicable diseases (principal); R50.9 Fever, unspecified; R05 Cough; R06.02 Shortness of breath; M79.10 Myalgia, unspecified site; R09.89 Other specified symptoms and signs involving the circulatory and respiratory systems; R51 Headache; J45.909 Unspecified asthma, uncomplicated; K21.9 Gastro-esophageal reflux disease without esophagitis; I10 Essential (primary) hypertension; Z95.1 Presence of aortocoronary bypass graft; Z91.040 Latex allergy status; Z87.891 Personal history of nicotine dependence
CPT/HCPCS: 36415; 87070; 87880; 87804; U0003; C9803; 87635; 99201; 99211

== ENCOUNTER 2020-01-27 20:43 | Observation (INO) | payer MEDICARE ==
--- NOTE | 2020-01-27 21:34 | RADIOLOGY REPORT (SQ) ---
EXAM DESCRIPTION: CT HEAD WITHOUT IV CONTRAST COMPLETED DATE/TME: 01/27/2020 21:08 CLINICAL HISTORY: 79 years, Female, AMS COMPARISON: CT from 12/02/2018. TECHNIQUE: Axial images without IV contrast. Sagittal coronal reconstruction. Images stored on PACS. All CT scanners at this facility use dose modulation, iterative reconstruction, and/or weight based dosing when appropriate to reduce radiation dose to as low as reasonably achievable (ALARA). FINDINGS: No significant atrophy. No acute intra-axial or extra-axial abnormalities. Paranasal sinuses, mastoid air cells and bony calvarium are unremarkable. IMPRESSION: No acute findings intracranially. TECHNICAL DOCUMENTATION: Quality ID # [id number]: Final reports with documentation of one or more dose reduction techniques (e.g., Automated exposure control, adjustment of the mA and/or kV according to patient size, use of iterative reconstruction technique) copyright 2011 [facility] [email or web address]- All Rights Reserved
--- NOTE | 2020-01-27 22:08 | ER Document Report ---
ED Medical Screen (RME) - General Stated Complaint: BLOOD PRESSURE ISSUES Time Seen by Provider: 01/27/20 22:06 Primary Care Provider: DORINA GIBSON NP [Primary Care Provider] - Follow up as needed Notes: HPI: 79-year-old female with multiple medical conditions presenting for left- sided tightness in the chest, shoulder neck arm and leg. No headache. Patient states that earlier this evening she called EMS to the house because her blood pressure was very high. She states they were going to go and then she noticed tightness in the left neck and shoulder region and also some tingling in the left leg. No headache no vision change no anterior chest pain patient does report she is more short of breath than she normally is. She states her son is Covid positive. She states that she tested negative. PHYSICAL EXAMINATION: Negative EMS rapid Covid test. Patient states she also tested -2 days ago. Patient lung sounds are decreased bilaterally. No visible edema in the bilateral lower extremities. Alert and oriented answering all questions appropriately. No slurred speech. Strength equal 5/5 bilateral upper and lower extremities with intact sensation in all extremities. I have greeted and performed a rapid initial assessment of this patient. A comprehensive ED assessment and evaluation of the patient, analysis of test results and completion of medical decision making process will be conducted by an additional ED providers. Please note that clinical decision making for this patient was made during the 2019 pandemic of novel coronavirus which caused a significant strain on the healthcare system including at this particular facility. Criteria for admission discharge and level of care decisions as well as treatment decisions have necessarily changed TRAVEL OUTSIDE OF THE [place] IN LAST 30 DAYS: No - Related Data Allergies/Adverse Reactions: latex Allergy (Verified 04/04/19 20:05) Past Medical History - Past Medical History Cardiac Medical History: Reports: Hx Congestive Heart Failure, Hx Coronary Artery Disease, Hx Heart Attack, Hx Hypercholesterolemia, Hx Hypertension Pulmonary Medical History: Reports: Hx COPD Renal/ Medical History: Denies: Hx Peritoneal Dialysis GI Medical History: Reports: Hx Gastroesophageal Reflux Disease Psychiatric Medical History: Reports: Hx Anxiety, Hx Depression Past Surgical History: Reports: Hx Cardiac Catheterization, Hx Cardiac Surgery - quadruple bypass 2013, Hx Hysterectomy - Immunizations Hx Diphtheria, Pertussis, Tetanus Vaccination: No Doctor's Discharge - Discharge Referrals: DORINA GIBSON NP [Primary Care Provider] - Follow up as needed
--- NOTE | 2020-01-27 23:06 | RADIOLOGY REPORT (SQ) ---
CHEST X-RAY 1 VIEW on 01/27/2020 at 10:39 PM CLINICAL INDICATION: Shortness of breath COMPARISON: 04/04/2019 FINDINGS: The patient is status post median sternotomy and CABG. 2-lead left subclavian AICD device is noted in place. There is mild elevation of the right hemidiaphragm. Vascular calcification is noted in the aorta. The lungs are clear. Cardiac, hilar and mediastinal contours are within normal limits. Pulmonary vascularity is within normal limits. IMPRESSION: No significant change and no acute disease.
[2020-01-27 23:38] LABS: ABSOLUTE EOSINOPHILS # (AUTO) 0.2 10^3/uL (0.0-0.6); ABSOLUTE MONOCYTES (AUTO) 0.4 10^3/uL (0.1-1.4); ABSOLUTE NEUT (AUTO) 1.8 10^3/uL (1.7-8.2); BASOPHILS % (AUTO) 0.9 % (0-2); EOSINOPHILS % (AUTO) 4.8 % (0-6); HEMATOCRIT 38.5 % (36.0-47.0); HEMOGLOBIN 12.5 g/dL (12.0-15.5); LYMPHOCYTES % (AUTO) 45.5 % (13-45); MEAN CORPUSCULAR HEMOGLOBIN 29.3 pg (27.0-33.4); MEAN CORPUSCULAR HGB CONC 32.4 g/dL (32.0-36.0); MEAN CORPUSCULAR VOLUME 90 fl (80-97); MONOCYTES % (AUTO) 8.8 % (3-13); PLATELET COUNT 184 10^3/uL (150-450); RED BLOOD COUNT 4.26 10^6/uL (3.72-5.28); RED CELL DISTRIBUTION WIDTH 13.6 % (11.5-14.0); TOTAL CELLS COUNTED % (AUTO) 100 %; WHITE BLOOD COUNT 4.5 10^3/uL (4.0-10.5)
[2020-01-27 23:45] LABS: ALBUMIN 3.8 g/dL (3.5-5.0); ALKALINE PHOSPHATASE 125 U/L (38-126); ASPARTATE AMINO TRANSFERASE 30 U/L (14-36); BILIRUBIN,DIRECT 0.1 mg/dL (0.0-0.4); BILIRUBIN,TOTAL 0.4 mg/dL (0.2-1.3); BLOOD UREA NITROGEN 18 mg/dL (7-20); CALCIUM 9.8 mg/dL (8.4-10.2); CARBON DIOXIDE 26 mmol/L (22-30); CHLORIDE 109 mmol/L (98-107); GLUCOSE 103 mg/dL (75-110); POTASSIUM 4.3 mmol/L (3.6-5.0)
[2020-01-27 23:47] LABS: INTERNATIONAL RATION (INR) 0.97; PROTHROMBIN TIME 13.1 SEC (11.4-15.4)
[2020-01-27 23:58] LABS: ANION GAP 4 (5-19)
--- NOTE | 2020-01-28 00:46 | ER Document Report ---
ED General - General Chief Complaint: Stiff Neck Stated Complaint: BLOOD PRESSURE ISSUES Time Seen by Provider: 01/27/20 22:06 Notes: Patient is a 79-year-old female presents emergency department with the chief complaint of left arm and left leg tingling that started around 1930 this evening. Initially the patient had she called EMS and initially did not want to come into the hospital, but once EMS left, the patient developed some tingling to her left neck, left arm, and left leg. Patient has history of a CABG, hypertension, congestive heart failure, and AICD placement. Denies any weakness. TRAVEL OUTSIDE OF THE [place] IN LAST 30 DAYS: No - Related Data Allergies/Adverse Reactions: latex Allergy (Verified 04/04/19 20:05) Past Medical History - Social History Smoking Status: Former Smoker Frequency of alcohol use: None Drug Abuse: None Family History: Reviewed & Not Pertinent, Arthritis, CAD, COPD, Hypertension - Past Medical History Cardiac Medical History: Reports: Hx Congestive Heart Failure, Hx Coronary Artery Disease, Hx Heart Attack, Hx Hypercholesterolemia, Hx Hypertension Pulmonary Medical History: Reports: Hx COPD Renal/ Medical History: Denies: Hx Peritoneal Dialysis GI Medical History: Reports: Hx Gastroesophageal Reflux Disease Psychiatric Medical History: Reports: Hx Anxiety, Hx Depression Past Surgical History: Reports: Hx Cardiac Catheterization, Hx Cardiac Surgery - quadruple bypass 2013, Hx Hysterectomy - Immunizations Hx Diphtheria, Pertussis, Tetanus Vaccination: No Hx Pneumococcal Vaccination: 02/11/09 Review of Systems - Review of Systems Notes: REVIEW OF SYSTEMS: CONSTITUTIONAL : Denies recent illness. Denies recent unintentional weight loss. Denies fever, chills, or sweats. EENT: Denies eye, ear, throat, or mouth pain, discharge, or symptoms. Denies nasal or sinus congestion. CARDIOVASCULAR: Denies chest pain. RESPIRATORY: Denies shortness of breath, cough, congestion, difficulty breathing, or wheezing. GASTROINTESTINAL: Denies nausea, vomiting, and diarrhea. Denies abdominal pain. Denies constipation. GENITOURINARY: Denies difficulty urinating, burning, blood in urine, urgency or frequency. MUSCULOSKELETAL: Denies neck and back pain. Denies joint pain or swelling. SKIN: Denies rash, itchiness, or lesions HEMATOLOGIC : Denies easy bruising or bleeding. LYMPHATIC: Denies swollen, painful, enlarged glands. NEUROLOGICAL: See HPI. PSYCHIATRIC: Denies stress, anxiety, alteration in sleep patterns, or depression. All other systems reviewed and negative. Physical Exam - Vital signs Vitals: Pulse Ox 98 01/27/20 22:06 - Notes Notes: PHYSICAL EXAMINATION: GENERAL: Appears well, healthy, well-nourished, no acute distress. HEAD: Normocephalic, atraumatic. EYES: PERRL, conjunctiva normal, all extraocular movements intact, sclera nonicteric ENT: Moist mucous membranes. NECK: Supple, no noticeable swelling, redness, rash. Normal range of motion. LUNGS: Equal breath sounds bilaterally and clear to auscultation. No wheezes rales or rhonchi. CARDIOVASCULAR: S1-S2, regular rate, regular rhythm. Radial pulses 2+, normal. ABDOMEN: Normoactive bowel sounds. Soft, nontender, no guarding, no rebound tenderness, and no masses palpated. EXTREMITIES: Normal strength and range of motion, no pitting or edema. No cyanosis. NEUROLOGICAL: Moves all extremities upon command. Strength 5/5 in all extremities. PSYCH: Normal mood, normal affect. SKIN: Warm, dry. No rash, lesions, ulcerations noted. Normal skin turgor. Course - Re-evaluation Re-evalutation: 01/28/20 01:15 CT of the head is unremarkable. Discussed this case with Dr. Wilks. She is recommending a CTA of the head and neck. Hematology is unremarkable. Coagulation studies are normal. Chemistries are also normal. LFTs are normal. Troponin is negative. BNP is slightly elevated at 608. Patient reports that she still does have the tingling to the left side of her body. Patient will be premedicated for CT as she states last time she had a CT with contrast, "it made her feel funny." 01/28/20 06:25 Patient still reports that she has her left-sided tingling. Her CTA shows calcifications in both her right and left carotid arteries, but no complete occlusion. Dr. Caldwell will admit the patient. - Vital Signs Vital signs: Temp Pulse Resp BP Pulse Ox 98.0 F 84 16 145/68 H 99 01/29/20 15:10 01/29/20 15:10 01/29/20 15:10 01/29/20 15:10 01/29/20 15:10 - Laboratory Results Result Diagrams: 01/27/20 23:25 01/27/20 23:25 Laboratory Results Interpreted: 01/27/20 01/27/20 01/27/20 23:25 23:25 23:25 Lymph % (Auto) 45.5 H Seg Neutrophils % 40.0 L Chloride 109 H Anion Gap 4 L Est GFR ( Amer) 58 L Est GFR (MDRD) Non-Af 48 L NT-Pro-B Natriuret Pep 608 H Critical Laboratory Results Reviewed: No Critical Results - Radiology Results Critical Radiology Results Reviewed: No Critical Results - EKG Interpretation by Me Additional EKG results interpreted by me: 01/27/20 Atrial paced rhythm. PVC noted. Rate 67. VA 189; QRS 84; QT 420; QTc 444. No acute change from previous EKG done on 04/04/2019. No new ST elevations or depressions. Discharge - Discharge Clinical Impression: Numbness and tingling of left arm and leg Condition: Stable Disposition: ADMITTED INPATIENT Admitting Provider: [facility] Unit Admitted: [facility]
[2020-01-28] MEDS ORDERED: METHYLPREDNISOLONE INJ 125 MG/2 ML SDV IV ONE (01:13)
[2020-01-28] MEDS ORDERED: DIPHENHYDRAMINE HCL 50 MG/ML VIAL IV ONE (01:14)
[2020-01-28] MEDS ORDERED: FAMOTIDINE INJ/PF 20 MG/2 ML SDV IV ONE (01:14)
--- NOTE | 2020-01-28 04:54 | RADIOLOGY REPORT (SQ) ---
EXAM DESCRIPTION: CTA HEAD (accession [id number]), CTA NECK (accession [id number]) RadLex: CT HEAD ANGIOGRAPHY WITHOUT THEN WITH IV CONTRAST, CT NECK ANGIOGRAPHY WITHOUT THEN WITH IV CONTRAST CLINICAL HISTORY: 79 years Female; Left side tingling; TECHNIQUE: CT angiogram of the head and neck using intravenous contrast. MIP reconstructions were performed. Stenosis measurements performed using NASCET criteria. All CT scans at this facility use dose modulation, iterative reconstruction, and/or weight based dosing when appropriate to reduce radiation dose to as low as reasonably achievable. COMPARISON: None. FINDINGS: Neck: Aortic arch: Moderate calcific plaque. Right carotid: Calcific plaque at the bifurcation. No stenosis. Left carotid: Mild calcific plaque at the bifurcation. No stenosis. Both carotid arteries have medial retropharyngeal deviation above the level of the glottis. Right vertebral: No focal stenosis or intraluminal filling defects. Left vertebral: No focal stenosis or intraluminal filling defects. Chronic degenerative changes of the cervical spine. Facet arthropathy is worse on the left. Head: ICA: patent Vertebrals: patent Basilar:patent DIRECTOR OF MARKETING AND PROMOTIONS: patent bilaterally Posterior communicating arteries:patent Anterior communicating artery: patent LALIT: patent bilaterally MCA: patent bilaterally No aneurysm. No intra-arterial filling defects. Stephens matter enhancement is symmetric. No filling defects in the major dural venous sinuses. IMPRESSION: 1. Mild atherosclerosis 2. No significant stenosis of the cervical carotid or vertebral arteries. 3. No acute intracranial large vessel occlusion or focal intracranial stenosis. 4. Chronic degenerative changes of the cervical spine, with facet arthropathy worse on the left.
--- NOTE | 2020-01-28 04:54 | RADIOLOGY REPORT (SQ) ---
EXAM DESCRIPTION: CTA HEAD (accession [id number]), CTA NECK (accession [id number]) RadLex: CT HEAD ANGIOGRAPHY WITHOUT THEN WITH IV CONTRAST, CT NECK ANGIOGRAPHY WITHOUT THEN WITH IV CONTRAST CLINICAL HISTORY: 79 years Female; Left side tingling; TECHNIQUE: CT angiogram of the head and neck using intravenous contrast. MIP reconstructions were performed. Stenosis measurements performed using NASCET criteria. All CT scans at this facility use dose modulation, iterative reconstruction, and/or weight based dosing when appropriate to reduce radiation dose to as low as reasonably achievable. COMPARISON: None. FINDINGS: Neck: Aortic arch: Moderate calcific plaque. Right carotid: Calcific plaque at the bifurcation. No stenosis. Left carotid: Mild calcific plaque at the bifurcation. No stenosis. Both carotid arteries have medial retropharyngeal deviation above the level of the glottis. Right vertebral: No focal stenosis or intraluminal filling defects. Left vertebral: No focal stenosis or intraluminal filling defects. Chronic degenerative changes of the cervical spine. Facet arthropathy is worse on the left. Head: ICA: patent Vertebrals: patent Basilar:patent TOOLS ADMINISTRATOR: patent bilaterally Posterior communicating arteries:patent Anterior communicating artery: patent LALIT: patent bilaterally MCA: patent bilaterally No aneurysm. No intra-arterial filling defects. Stephens matter enhancement is symmetric. No filling defects in the major dural venous sinuses. IMPRESSION: 1. Mild atherosclerosis 2. No significant stenosis of the cervical carotid or vertebral arteries. 3. No acute intracranial large vessel occlusion or focal intracranial stenosis. 4. Chronic degenerative changes of the cervical spine, with facet arthropathy worse on the left.
[2020-01-28] MEDS ORDERED: ACETAMINOPHEN 325 MG TABLET PO PRN (06:17)
[2020-01-28] MEDS ORDERED: NORMAL SALINE 1000 ML 1,000 ML IV PRN (06:17)
[2020-01-28] MEDS ORDERED: ONDANSETRON HCL INJ/PF 4 MG/2 ML SDV IV PRN (06:17)
--- NOTE | 2020-01-28 06:29 | PDOC H&P ---
History of Present Illness Admission Date/PCP: DORINA GIBSON NP Patient complains of: Left upper and lower extremity numbness and tingling History of Present Illness: BISHNU BAIN is a 79 year old female with a history of hypertension, diabetes, CAD status post CABG and heart failure who now presents with few hours duration of numbness and tingling on the left upper and lower extremities. Patient reports that she checked her blood pressure at home and was elevated with a systolic in the 200s and she called EMS but on site her blood pressure was found to be not significantly elevated and she was not transported to ED. Shortly following the departure of EMS she started having numbness and tingling sensation on the left upper and lower extremity around 6 PM. She denies any associated weakness of extremities, slurred speech, difficulty swallowing, p assing out, abnormal body movement or any change in her bowel or urinary habits. She denies any similar symptoms in the past. Patient also denies any chest pain, palpitation, dizziness, nausea, vomiting, diarrhea. She denies any recent sick contact history. She states that she has been compliant with her medication. Past Medical History Cardiac Medical History: Reports: Congestive Heart Failure, Coronary Artery Disease, Myocardial Infarction, Hyperlipidema, Hypertension Pulmonary Medical History: Reports: Chronic Obstructive Pulmonary Disease (COPD) GI Medical History: Reports: Gastroesophageal Reflux Disease Psychiatric Medical History: Reports: Depression Past Surgical History Past Surgical History: Reports: Cardiac Catheterization, Hysterectomy Social History Information Source: Patient Lives with: Family Smoking Status: Former Smoker Frequency of Alcohol Use: None Hx Recreational Drug Use: No Drugs: None Hx Prescription Drug Abuse: No - Advance Directive Resuscitation Status: Do Not Resuscitate Family History Family History: Reviewed & Not Pertinent, Arthritis, CAD, COPD, Hypertension Parental Family History Reviewed: Yes Children Family History Reviewed: Yes Sibling(s) Family History Reviewed.: Yes Medication/Allergy Home Medications: Aspirin [Adult Low Dose Aspirin EC] 81 mg PO DAILY 09/04/16 Atorvastatin Calcium [Lipitor 40 mg Tablet] 20 mg PO DAILY 09/04/16 Carvedilol [Coreg 12.5 mg Tablet] 18.75 mg PO Q12 09/04/16 Lorazepam [Ativan 0.5 mg Tablet] 0.5 mg PO BIDP PRN 09/04/16 Amitriptyline HCl [Elavil 10 Mg Tablet] 10 mg PO QHS 12/02/18 Hydrochlorothiazide 12.5 mg PO MOWEFR 12/02/18 Losartan Potassium 100 mg PO DAILY 12/02/18 Acetaminophen [Tylenol 325 mg Tablet] 650 mg PO Q4HP PRN 03/28/19 Acetaminophen [Tylenol 8 Hour] 650 mg PO ASDIR PRN 03/28/19 Acetaminophen/Chlorpheniramine [Coricidin Cold & Flu Tablet] 1 tab PO ASDIR PRN 03/28/19 Acetaminophen/Diphenhydramine [Tylenol Pm Ex-Strength Caplet] 1 each PO ASDIR PRN 03/28/19 Cetirizine HCl [All Day Allergy] 10 mg PO DAILY #5 tablet 03/28/19 Fluticasone Propionate [Flonase Nasal [place] 50 Mcg/[place] 16 gm] 2 sprays NASL DAILY #1 inhaler 03/28/19 Guaifenesin/Dextromethorphan [Coricidin Hbp Chest Jalen-Cough] 1 each PO ASDIR PRN 03/28/19 Levofloxacin [Levaquin 500 mg Tablet] 500 mg PO DAILY 03/28/19 Famotidine [Pepcid 20 mg Tablet] 20 mg PO DAILY #12 tablet 04/05/19 Ondansetron [Zofran Odt 4 mg Tablet] 1 - 2 tab PO Q4H PRN #15 tab.rapdis 03/15 04/30 Allergies/Adverse Reactions: latex Allergy (Verified 04/04/19 20:05) Review of Systems Constitutional: ABSENT: chills, fever(s), headache(s), weight gain, weight loss Eyes: ABSENT: visual disturbances Ears: ABSENT: hearing changes Cardiovascular: ABSENT: chest pain, dyspnea on exertion, edema, orthropnea, palpitations Respiratory: ABSENT: cough, hemoptysis Gastrointestinal: ABSENT: abdominal pain, constipation, diarrhea, hematemesis, hematochezia, nausea, vomiting Genitourinary: ABSENT: dysuria, hematuria Musculoskeletal: ABSENT: joint swelling Integumentary: ABSENT: rash, wounds Neurological: PRESENT: as per HPI Psychiatric: ABSENT: anxiety, depression, homidical ideation, suicidal ideation Endocrine: ABSENT: cold intolerance, heat intolerance, polydipsia, polyuria Hematologic/Lymphatic: ABSENT: easy bleeding, easy bruising Physical Exam Vital Signs: Temp Pulse Resp BP Pulse Ox 97.3 F 60 18 184/83 H 100 01/27/20 23:30 01/28/20 02:14 01/28/20 02:14 01/28/20 02:14 01/28/20 02:14 Intake & Output 01/26/20 01/27/20 01/28/20 06:59 06:59 06:59 Weight 65.4 kg Additional comments: GENERAL APPEARANCE: Alert and oriented x3, in no acute distress HEENT: Normocephalic and atraumatic. No scleral icterus. Moist oral mucosa NECK: Supple. No lymphadenopathy or tenderness. No carotid bruit. No JVD CHEST: Symmetric. Nontender to palpation. LUNGS: Clear with good air entry bilaterally. No wheezing or crackles HEART: Regular rate and rhythm with normal S1 and S2. No murmurs, gallops, or rubs. ABDOMEN: soft, active bowel sounds, no direct or rebound tenderness. No organomegaly detected. EXTREMITIES: No cyanosis, clubbing, or edema. MUSCULOSKELETAL: No deformity, atrophy or swelling noted PSYCHIATRIC: Recent and remote memory is intact. Appropriate mood and affect. SKIN: Warm, dry, and well perfused. No lesions or rashes are noted. NEUROLOGIC: Cranial nerves II through XII grossly intact Motor: Power was 5/5 in all extremities, has no muscle atrophy or fasciculations Sensation to light touch was intact Reflexes +2 symmetrically bilaterally Babinski was equivocal and has no clonus Results Laboratory Results: 01/27/20 23:25 01/27/20 23:25 01/27/20 01/27/20 23:25 23:25 WBC 4.5 RBC 4.26 Hgb 12.5 Hct 38.5 MCV 90 MCH 29.3 MCHC 32.4 RDW 13.6 Plt Count 184 Seg Neutrophils % 40.0 L Sodium 139.4 Potassium 4.3 Chloride 109 H Carbon Dioxide 26 Anion Gap 4 L BUN 18 Creatinine 1.11 Est GFR ( Amer) 58 L Glucose 103 Calcium 9.8 Total Bilirubin 0.4 AST 30 Alkaline Phosphatase 125 Total Protein 7.0 Albumin 3.8 01/27/20 01/27/20 01/28/20 23:25 23:25 04:05 Troponin I < 0.012 < 0.012 NT-Pro-B Natriuret Pep 608 H Impressions: Head CT 01/27/20 20:57 IMPRESSION: No acute findings intracranially. TECHNICAL DOCUMENTATION: Quality ID # [id number]: Final reports with documentation of one or more dose reduction techniques (e.g., Automated exposure control, adjustment of the mA and/or kV according to patient size, use of iterative reconstruction technique) copyright 2011 [employer]- All Rights Reserved Chest X-Ray 01/27/20 22:06 IMPRESSION: No significant change and no acute disease. Head CTA 01/28/20 01:12 IMPRESSION: 1. Mild atherosclerosis 2. No significant stenosis of the cervical carotid or vertebral arteries. 3. No acute intracranial large vessel occlusion or focal intracranial stenosis. 4. Chronic degenerative changes of the cervical spine, with facet arthropathy worse on the left. Neck CTA 01/28/20 01:12 IMPRESSION: 1. Mild atherosclerosis 2. No significant stenosis of the cervical carotid or vertebral arteries. 3. No acute intracranial large vessel occlusion or focal intracranial stenosis. 4. Chronic degenerative changes of the cervical spine, with facet arthropathy worse on the left. Assessment and Plan - Diagnosis (1) Stroke-like symptoms Is this a current diagnosis for this admission?: Yes Plan: Patient presents with left-sided numbness and tingling Possible focal motor weakness, aphasia or dysphagia Patient was out of window period for TPA ABCD 2 score was 5, NIH stroke score was zero CT head without contrast was negative CTA of the head and neck was unremarkable Admit for observation On telemetry monitoring Keep n.p.o. and do swallow eval PT/OT, speech consult placed Obtain lipid panel Neurochecks, fall precaution and Accu-Chek Continued aspirin and atorvastatin Echo ordered (2) Coronary atherosclerosis Qualifiers: Coronary Disease-Associated Artery/Lesion type: [place] artery [place] vs. transplanted heart: [place] heart Associated angina: without angina Qualified Code(s): I25.10 - Atherosclerotic heart disease of [place] coronary artery wit hout angina pectoris Is this a current diagnosis for this admission?: Yes Plan: Status post CABG Has a defibrillator Cardiac enzymes were negative x2 EKG shows T wave inversion on inferior leads Continue aspirin and atorvastatin (3) Congestive heart failure Is this a current diagnosis for this admission?: Yes Plan: Currently appears euvolemic and not in acute exacerbation We will hold off diuretics for now Fluid restriction, strict I&O's, daily weight (4) Diabetes Qualifiers: Diabetes mellitus type: type 1 Diabetes mellitus complication status: without complication Qualified Code(s): E10.9 - Type 1 diabetes mellitus without complications Is this a current diagnosis for this admission?: Yes Plan: Placed her on sliding scale insulin, Accu-Chek and hypoglycemia protocol (5) HTN (hypertension) Qualifiers: Hypertension type: unspecified Qualified Code(s): I10 - Essential (primary) hypertension Is this a current diagnosis for this admission?: Yes Plan: Currently blood pressure is in the 160s by 70s Hold antihypertensives for now for permissive hypertension Closely monitor internal signs - Time Time Spent with patient: 35 or more minutes Total Critical Time (Minutes): 45 Medications reviewed and adjusted accordingly: Yes Anticipated Discharge Disposition: Home, Self Care Anticipated Discharge Timeframe: within 48 hours - Inpatient Certification Based on my medical assessment, after consideration of the patient's comorbidities, presenting symptoms, or acuity I expect that the services needed warrant INPATIENT care.: Yes I certify that my determination is in accordance with my understanding of Medicare's requirements for reasonable and necessary INPATIENT services [42 CFR 412.3e].: Yes Medical Necessity: Significant Comorbidiites Make Outpatient Treatment Too Risky, Need Close Monitoring Due to Risk of Patient Decompensation, Need For Co ntinuous Telemetry Monitoring, Risk of Complication if Not Cared For in Hospital Post Hospital Care: D/C or Transfer Summary
[2020-01-28] MEDS ORDERED: FAMOTIDINE 20 MG TABLET PO SCH (10:00)
[2020-01-28] MEDS ORDERED: LORAZEPAM 0.5 MG TABLET PO PRN (11:53)
[2020-01-28] MEDS ORDERED: HYDROCHLOROTHIAZIDE 12.5 MG TABLET PO ONE (11:55)
[2020-01-28] MEDS: ASPIRIN 81 MG TABLET, CHEWABLE PO SCH (12:10)
[2020-01-28] MEDS: LOSARTAN POTASSIUM 50 MG TABLET PO SCH (12:10)
[2020-01-28] MEDS: ENOXAPARIN SODIUM INJ 40 MG/0.4 ML DISP.SYRIN SUBCUT SCH (12:11)
[2020-01-28] MEDS ORDERED: FUROSEMIDE INJ/PF 20 MG/2 ML SDV IV ONE (18:30)
[2020-01-28 21:20] LABS: CHOLESTEROL 168.02 mg/dL (0-200); TRIGLYCERIDES 82 mg/dL (<150)
[2020-01-28] MEDS: CARVEDILOL 6.25 MG TABLET PO SCH (21:29)
[2020-01-28 21:30] LABS: DIRECT LDL 85 mg/dL (<100)
--- NOTE | 2020-01-28 21:31 | EKG REPORT ---
SEVERITY:- ABNORMAL ECG - ATRIAL-PACED COMPLEXES VENTRICULAR PREMATURE COMPLEX PROBABLE LEFT ATRIAL ABNORMALITY LEFT VENTRICULAR HYPERTROPHY ABNORMAL T, CONSIDER ISCHEMIA, INFERIOR LEADS : Confirmed by: Alexandra Garvin MD 28-Jan-2020 21:29:57
[2020-01-28] MEDS ORDERED: ATORVASTATIN CALCIUM 40 MG TABLET PO SCH (22:00)
[2020-01-28] MEDS ORDERED: AMITRIPTYLINE HCL 10 MG TABLET PO SCH (22:00)
--- NOTE | 2020-01-28 22:15 | XCELERA REPORT ---
[address] [address] Transthoracic Echocardiogram Report Name: BISHNU BAIN Age: 79 yrs Gender: Female : 1940 Patient Status: Inpatient Patient Location: [address] [place] [address] Study Date: 01/28/2020 09:57 AM Height: 63 in Weight: 140 lb BSA: 1.7 m2 Procedure: A two-dimensional transthoracic echocardiogram with color flow and Doppler was performed. Study Quality: Fair. Reason For Study: TIA like symptoms History: TIA. Ordering Physician: SAMMY JOHN Performed By: Earnestine Goodwin Interpretation Summary There is no obvious cardiac source of embolus noted on this transthoracic echocardiogram. Follow-up with a H[facility] is suggested if cardiac source is still suspected. The left ventricle is normal in size. There is normal left ventricular wall thickness. LV EF is 55% to 60% Left ventricular systolic function is normal. Doppler measurements suggest impaired left ventricular relaxation, which is associated with grade I/IV or mild diastolic dysfunction The left ventricular wall motion is normal. No ASD,VSD,or PFO seen. There is no thrombus. The right ventricle is normal in size and function. Pacemaker lead in RA and RV. The right atrium is normal. The left atrial size is normal. There is no evidence of mitral valve prolapse. There is no vegetation seen on the mitral valve. There is no mitral valve stenosis. There is a trace amount of mitral regurgitation There is no aortic valvular vegetation. There is no aortic valve stenosis There is no LVOT obstruction. There is a trace amount of aortic regurgitation There is no tricuspid stenosis. There is a trace amount of tricuspid regurgitation Right ventricular systolic pressure is normal. RVSP is 24 to 29 mm of HG , with RA mean of 5 to 10. There is no pulmonic valvular stenosis. There is a trace amount of pulmonic regurgitation The aortic root is normal size. The inferior vena cava appeared normal and decreased > 50% with respiration (RAP 5-10 mmHg) No pericardial efusion. There is no obvious cardiac source of embolus noted on this transthoracic echocardiogram. Follow-up with a HAM is suggested if cardiac source is still suspected MMode/2D Measurements & Calculations RVDd: 2.0 cm LVIDd: 4.4 cm FS: 25.0 % Ao root diam: 2.5 cm IVSd: 1.1 cm LVIDs: 3.3 cm EDV(Teich): 86.6 ml Ao root area: 4.8 cm2 LVPWd: 0.99 cm ESV(Teich): 43.6 ml EF(Teich): 49.7 % Doppler Measurements & Calculations MV E max brent: MV dec slope: Ao V2 max: LV V1 max P.6 cm/sec 347.0 cm/sec2 136.5 cm/sec 2.2 mmHg MV A max brent: MV dec time: Ao max PG: LV V1 mean P.7 cm/sec 0.19 sec 7.4 mmHg 0.99 mmHg MV E/A: 0.66 Ao V2 mean: LV V1 max: 85.6 cm/sec 74.5 cm/sec Ao mean PG: LV V1 mean: 3.4 mmHg 45.4 cm/sec Ao V2 VTI: 35.5 cm LV V1 VTI: 16.8 cm PA V2 max: PI end-d brent: TR max brent: 65.8 cm/sec 123.9 cm/sec 214.8 cm/sec PA max P.7 mmHg TR max P.8 mmHg Left Ventricle The left ventricle is normal in size. There is normal left ventricular wall thickness. LV EF is 55% to 60%. Left ventricular systolic function is normal. Doppler measurements suggest impaired left ventricular relaxation, which is associated with grade I/IV or mild diastolic dysfunction. The left ventricular wall motion is normal. No ASD,VSD,or PFO seen. There is no thrombus. Right Ventricle The right ventricle is normal in size and function. Pacemaker lead in RA and RV. Atria The right atrium is normal. The left atrial size is normal. Mitral Valve There is no evidence of mitral valve prolapse. There is no vegetation seen on the mitral valve. There is no mitral valve stenosis. There is a trace amount of mitral regurgitation. Aortic Valve There is no aortic valvular vegetation. There is no aortic valve stenosis. There is no LVOT obstruction. There is a trace amount of aortic regurgitation. Tricuspid Valve There is no tricuspid stenosis. There is a trace amount of tricuspid regurgitation. Right ventricular systolic pressure is normal. RVSP is 24 to 29 mm of HG , with RA mean of 5 to 10. Pulmonic Valve There is no pulmonic valvular stenosis. There is a trace amount of pulmonic regurgitation. Great Vessels The aortic root is normal size. The inferior vena cava appeared normal and decreased > 50% with respiration (RAP 5-10 mmHg). Effusions No pericardial efusion. : SAMMY JOHN Lakshmi
[2020-01-29] MEDS ORDERED: HYDROCHLOROTHIAZIDE 12.5 MG TABLET PO SCH (08:00)
[2020-01-29] MEDS ORDERED: ASPIRIN 81 MG TABLET, ENT COATED PO SCH (10:00)
--- NOTE | 2020-01-29 10:26 | RADIOLOGY REPORT (SQ) ---
EXAM DESCRIPTION: CT CERVICAL SPINE WITHOUT IMAGES COMPLETED DATE/TIME: 01/29/2020 9:23 am REASON FOR STUDY: radiculopathy left arm R73.9 HYPERGLYCEMIA, UNSPECIFIED E78.5 HYPERLIPIDEMIA, UN SPECIFIED R41.82 ALTERED MENTAL STATUS, UNSPECIFIED COMPARISON: None. TECHNIQUE: Axial images acquired through the cervical spine without intravenous contrast. Images re viewed with lung, soft tissue and bone windows. Reconstructed coronal and sagittal MPR images review ed. Images stored on PACS. All CT scanners at this facility use dose modulation, iterative reconstruction, and/or weight based d osing when appropriate to reduce radiation dose to as low as reasonably achievable (ALARA). [facility]: Dose Right [facility]: CareDose [facility]: Dose Right [facility]: Teradose 4D [facility]: [employer] RADIATION DOSE: CT Rad equipment meets quality standard of care and radiation dose reduction techniq ues were employed. CTDIvol: 17.8 mGy. DLP: 425 mGy-cm. mGy. LIMITATIONS: None. FINDINGS: ALIGNMENT: Straightening of the normal cervical lordosis. MINERALIZATION: Normal. VERTEBRAL BODIES: No fractures or dislocation. DISCS: Multilevel mild disc height loss there is significant disc height loss with posterior disc ost eophyte complex at C6-7 with mild resultant spinal canal stenosis. FACETS, LATERAL MASSES, POSTERIOR ELEMENTS: No facet fracture dislocation. Multilevel facet arthropa thy greatest from C2-C6 on the left. Multilevel uncovertebral hypertrophy. There is high-grade neur al foraminal narrowing at C6-7 from uncovertebral hypertrophy. [id number] additional neural fo raminal narrowing on the left secondary to the set and uncovertebral hypertrophy from C3-C6. HARDWARE: None in the spine. VISUALIZED RIBS: No fractures. LUNG APICES AND SOFT TISSUES: Vascular calcifications. No acute lung findings. Partially visualized sternotomy hardware and left-sided cardiac pacer. OTHER: No other significant finding. IMPRESSION: 1. No evidence of acute bony abnormality of the cervical spine. 2. Multilevel disc height loss with significant disc height loss and mild posterior disc osteophyte complex at C6-7. High-grade osseous neural foraminal narrowing at C6-7 from disc disease and uncover tebral hypertrophy. Additional degenerative changes above. TECHNICAL DOCUMENTATION: JOB ID: [id number] Quality ID # 436: Final reports with documentation of one or more dose reduction techniques (e.g., Au tomated exposure control, adjustment of the mA and/or kV according to patient size, use of iterative reconstruction technique) 2010 [employer]- All Rights Reserved Reading location - IP/workstation name: [email or web address]
--- NOTE | 2020-01-29 10:38 | RADIOLOGY REPORT (SQ) ---
EXAM DESCRIPTION: CT HEAD WITHOUT IMAGES COMPLETED DATE/TIME: 01/29/2020 9:23 am REASON FOR STUDY: follow up stroke-like symptoms R73.9 HYPERGLYCEMIA, UNSPECIFIED E78.5 HYPERLIPID EMIA, UNSPECIFIED R41.82 ALTERED MENTAL STATUS, UNSPECIFIED COMPARISON: 01/28/2020, 01/27/2020 CT TECHNIQUE: Axial images acquired through the brain without intravenous contrast. Images reviewed wi th bone, brain and subdural windows. Additional sagittal and coronal reconstructions were generated. Images stored on PACS. All CT scanners at this facility use dose modulation, iterative reconstruction, and/or weight based d osing when appropriate to reduce radiation dose to as low as reasonably achievable (ALARA). [facility]: Dose Right [facility]: CareDose [facility]: Dose Right [facility]: Teradose 4D [facility]: [employer] RADIATION DOSE: CT Rad equipment meets quality standard of care and radiation dose reduction techniq ues were employed. CTDIvol: 49.0 mGy. DLP: 986 mGy-cm. mGy. LIMITATIONS: None. FINDINGS: VENTRICLES: Age appropriate CEREBRUM: No masses. No hemorrhage. No midline shift. No evidence for acute infarction. Normal gra y/white matter differentiation. No areas of low density in the white matter. CEREBELLUM: No masses. No hemorrhage. No alteration of density. No evidence for acute infarction. EXTRAAXIAL SPACES: No fluid collections. No masses. ORBITS AND GLOBE: No intra- or extraconal masses. Normal contour of globe without masses. CALVARIUM: No fracture. PARANASAL SINUSES: No fluid or mucosal thickening. SOFT TISSUES: No mass or hematoma. OTHER: No other significant finding. IMPRESSION: No evidence of intracranial hemorrhage or other large vascular territory infarct. If hi gh clinical concern for acute ischemic event. Consider MRI. EVIDENCE OF ACUTE STROKE: NO. COMMENT: Quality ID # 436: Final reports with documentation of one or more dose reduction techniques (e.g., Automated exposure control, adjustment of the mA and/or kV according to patient size, use of iterative reconstruction technique) TECHNICAL DOCUMENTATION: JOB ID: [id number] 2010 [employer]- All Rights Reserved Reading location - IP/workstation name: [email or web address]
[2020-01-29] MEDS: LOSARTAN POTASSIUM 50 MG TABLET PO SCH (10:56)
[2020-01-29] MEDS: ASPIRIN 81 MG TABLET, CHEWABLE PO SCH (10:56)
[2020-01-29] MEDS: CARVEDILOL 6.25 MG TABLET PO SCH (10:56)
[2020-01-29] MEDS: ENOXAPARIN SODIUM INJ 40 MG/0.4 ML DISP.SYRIN SUBCUT SCH (10:58)
--- NOTE | 2020-01-29 13:28 | PDOC DISCHARGE SUMMARY ---
Impression - Admit/DC Date/PCP Admission Date/Primary Care Provider: 01/28/20 06:24 DORINA GIBSON NP Discharge Date: 01/29/20 - Discharge Diagnosis (1) Stroke-like symptoms Is this a current diagnosis for this admission?: Yes (2) Congestive heart failure Is this a current diagnosis for this admission?: Yes (3) Diabetes Is this a current diagnosis for this admission?: Yes (4) HTN (hypertension) Is this a current diagnosis for this admission?: Yes (5) Coronary atherosclerosis Is this a current diagnosis for this admission?: Yes - Additional Information Resuscitation Status: Do Not Resuscitate Discharge Diet: Cardiac Discharge Activity: Activity As Tolerated, Balance Activity w/Rest Referrals: DORINA GIBSON NP [Primary Care Provider] - 01/29/20 9:36 am ([facility] WILL CONTACT THE PATIENT WITH A FOLLOW UP APPT) Home Medications: Aspirin [Adult Low Dose Aspirin EC] 81 mg PO DAILY 09/04/16 Atorvastatin Calcium [Lipitor 40 mg Tablet] 20 mg PO QHS 09/04/16 Carvedilol [Coreg 12.5 mg Tablet] 18.75 mg PO Q12 09/04/16 Lorazepam [Ativan 0.5 mg Tablet] 0.5 mg PO BIDP PRN 09/04/16 Amitriptyline HCl [Elavil 10 mg Tablet] 10 mg PO QHS 12/02/18 Hydrochlorothiazide 12.5 mg PO MOWEFR 12/02/18 Losartan Potassium 100 mg PO DAILY 12/02/18 Acetaminophen [Tylenol 325 mg Tablet] 650 mg PO Q4HP PRN 03/28/19 Acetaminophen/Chlorpheniramine [Coricidin Hbp Cold-Flu Tablet] 1 tab PO Q6HP PRN 03/28/19 Acetaminophen [Tylenol 325 mg Tablet] 650 mg PO Q4HP PRN tablet 01/29/20 History of Present Illiness History of Present Illness: Per H&P by Dr. Caldwell: BISHNU BAIN is a 79 year old female with a history of hypertension, diabetes, CAD status post CABG and heart failure who now presents with few hours duration of numbness and tingling on the left upper and lower extremities. Patient reports that she checked her blood pressure at home and was elevated with a systolic in the 200s and she called EMS but on site her blood pressure was found to be not significantly elevated and she was not transported to ED. Shortly following the departure of EMS she started having numbness and tingling sensation on the left upper and lower extremity around 6 PM. She denies any associated weakness of extremities, slurred speech, difficulty swallowing, passing out, abnormal body movement or any change in her bowel or urinary habits. She denies any similar symptoms in the past. Patient also denies any chest pain, palpitation, dizziness, nausea, vomiting, diarrhea. She denies any recent sick contact history. She states that she has been compliant with her medication. Hospital Course Hospital Course: Patient was admitted to [facility] on continuous cardiac telemetry for evaluation of strokelike symptoms; patient reported left upper and lower extremity numbness and tingling. EKG showed an atrial paced rhythm. Head CT at admission was negative for acute findings. Head and neck CTA showed mild arthrosclerosis but was negative for significant stenosis of the cervical carotid or vertebral arteries. There was no intracranial large vessel occlusion or intracranial stenosis. Patient was not a candidate for MRI due to having a pacemaker. Echocardiogram showed LVEF 55 to 60% with a grade 1 diastolic dysfunction. There was no obvious cardiac source of embolus. Repeat head CT 36 hours later was again negative for acute findings. Cervical spine CT to evaluate for radiculopathy that may have explained the patient's left upper arm numbness did reveal multilevel disc height loss with mild posterior disc osteophyte complexes at C6-C7. There is also noted to be foraminal narrowing at C6-7 with resultant mild spinal canal stenosis. Laboratory evaluation was benign with unremarkable CBC, PT/INR, and chemistry. Troponins were negative x2. A1c 5.3%. Lipid panel was normal. Patient was evaluated by PT/OT services; they have signed off from providing further acute therapy services. Patient is discharged home in stable condition. She is advised to follow-up with her primary care provider within 1 week. Continue a cardiac diet. Return to the emergency department, as needed, for concerning symptoms. Physical Exam Vital Signs: Temp Pulse Resp BP Pulse Ox 98.0 F 61 16 149/65 H 99 01/29/20 08:31 01/29/20 08:31 01/29/20 08:31 01/29/20 08:31 01/29/20 08:31 Intake & Output 01/28/20 01/29/20 01/30/20 06:59 06:59 06:59 Intake Total 236 Balance 236 Weight 65.4 kg 65.7 kg General appearance: PRESENT: no acute distress, cooperative, well-developed, well-nourished Head exam: PRESENT: atraumatic, normocephalic Eye exam: PRESENT: conjunctiva pink, EOMI, PERRLA. ABSENT: scleral icterus Mouth exam: PRESENT: moist, tongue midline Respiratory exam: PRESENT: clear to auscultation greg, symmetrical, unlabored. ABSENT: rales, rhonchi, wheezes Cardiovascular exam: PRESENT: RRR, +S1, +S2. ABSENT: diastolic murmur, rubs, systolic murmur Pulses: PRESENT: normal dorsalis pedis pul Vascular exam: PRESENT: normal capillary refill Extremities exam: PRESENT: full ROM. ABSENT: calf tenderness, clubbing, pedal edema Musculoskeletal exam: PRESENT: ambulatory Neurological exam: PRESENT: alert, awake, oriented to person, oriented to place, oriented to time, oriented to situation, CN II-XII grossly intact. ABSENT: m otor sensory deficit Psychiatric exam: PRESENT: appropriate affect, normal mood. ABSENT: homicidal ideation, suicidal ideation Skin exam: PRESENT: dry, intact, warm. ABSENT: cyanosis, rash Results Laboratory Results: WBC 4.5 10^3/uL (4.0-10.5) 01/27/20 23:25 RBC 4.26 10^6/uL (3.72-5.28) 01/27/20 23:25 Hgb 12.5 g/dL (12.0-15.5) 01/27/20 23:25 Hct 38.5 % (36.0-47.0) 01/27/20 23:25 MCV 90 fl (80-97) 01/27/20 23:25 MCH 29.3 pg (27.0-33.4) 01/27/20 23:25 MCHC 32.4 g/dL (32.0-36.0) 01/27/20 23:25 RDW 13.6 % (11.5-14.0) 01/27/20 23:25 Plt Count 184 10^3/uL (150-450) 01/27/20 23:25 Lymph % (Auto) 45.5 % (13-45) H 01/27/20 23:25 Towner % (Auto) 8.8 % (3-13) 01/27/20 23:25 Eos % (Auto) 4.8 % (0-6) 01/27/20 23:25 Baso % (Auto) 0.9 % (0-2) 01/27/20 23:25 Absolute Neuts (auto) 1.8 10^3/uL (1.7-8.2) 01/27/20 23:25 Absolute Lymphs (auto) 2.0 10^3/uL (0.5-4.7) 01/27/20 23:25 Absolute Monos (auto) 0.4 10^3/uL (0.1-1.4) 01/27/20 23:25 Absolute Eos (auto) 0.2 10^3/uL (0.0-0.6) 01/27/20 23:25 Absolute Basos (auto) 0.0 10^3/uL (0.0-0.2) 01/27/20 23:25 Seg Neutrophils % 40.0 % (42-78) L 01/27/20 23:25 PT 13.1 SEC (11.4-15.4) 01/27/20 23:25 INR 0.97 01/27/20 23:25 Sodium 139.4 mmol/L (137-145) 01/27/20 23:25 Potassium 4.3 mmol/L (3.6-5.0) 01/27/20 23:25 Chloride 109 mmol/L (98-107) H 01/27/20 23:25 Carbon Dioxide 26 mmol/L (22-30) 01/27/20 23:25 Anion Gap 4 (5-19) L 01/27/20 23:25 BUN 18 mg/dL (7-20) 01/27/20 23:25 Creatinine 1.11 mg/dL (0.52-1.25) 01/27/20 23:25 Est GFR ( Amer) 58 (>60) L 01/27/20 23:25 Est GFR (MDRD) Non-Af 48 (>60) L 01/27/20 23:25 Glucose 103 mg/dL (75-110) 01/27/20 23:25 Hemoglobin A1c % 5.3 % (4.7-6.0) 01/28/20 20:42 Calcium 9.8 mg/dL (8.4-10.2) 01/27/20 23:25 Total Bilirubin 0.4 mg/dL (0.2-1.3) 01/27/20 23:25 Direct Bilirubin 0.1 mg/dL (0.0-0.4) 01/27/20 23:25 Neonat Total Bilirubin Not Reportable 01/27/20 23:25 Neonat Direct Bilirubin Not Reportable 01/27/20 23:25 Neonat Indirect Bili Not Reportable 01/27/20 23:25 AST 30 U/L (14-36) 01/27/20 23:25 ALT 16 U/L (<35) 01/27/20 23:25 Alkaline Phosphatase 125 U/L (38-126) 01/27/20 23:25 Troponin I < 0.012 ng/mL 01/28/20 04:05 NT-Pro-B Natriuret Pep 608 pg/mL (<450) H 01/27/20 23:25 Total Protein 7.0 g/dL (6.3-8.2) 01/27/20 23:25 Albumin 3.8 g/dL (3.5-5.0) 01/27/20 23:25 Triglycerides 82 mg/dL (<150) 01/28/20 20:42 Cholesterol 168.02 mg/dL (0-200) 01/28/20 20:42 LDL Cholesterol Direct 85 mg/dL (<100) 01/28/20 20:42 VLDL Cholesterol 16.0 mg/dL (10-31) 01/28/20 20:42 HDL Cholesterol 63 mg/dL (>40) 01/28/20 20:42 01/27/20 01/27/20 01/28/20 23:25 23:25 04:05 Troponin I < 0.012 < 0.012 NT-Pro-B Natriuret Pep 608 H Impressions: Head CT 01/27/20 20:57 IMPRESSION: No acute findings intracranially. TECHNICAL DOCUMENTATION: Quality ID # [id number]: Final reports with documentation of one or more dose reduction techniques (e.g., Automated exposure control, adjustment of the mA and/or kV according to patient size, use of iterative reconstruction technique) copyright 2011 [employer]- All Rights Reserved Chest X-Ray 01/27/20 22:06 IMPRESSION: No significant change and no acute disease. Head CTA 01/28/20 01:12 IMPRESSION: 1. Mild atherosclerosis 2. No significant stenosis of the cervical carotid or vertebral arteries. 3. No acute intracranial large vessel occlusion or focal intracranial stenosis. 4. Chronic degenerative changes of the cervical spine, with facet arthropathy worse on the left. Neck CTA 01/28/20 01:12 IMPRESSION: 1. Mild atherosclerosis 2. No significant stenosis of the cervical carotid or vertebral arteries. 3. No acute intracranial large vessel occlusion or focal intracranial stenosis. 4. Chronic degenerative changes of the cervical spine, with facet arthropathy worse on the left. Cervical Spine CT 01/29/20 00:00 IMPRESSION: 1. No evidence of acute bony abnormality of the cervical spine. 2. Multilevel disc height loss with significant disc height loss and mild posterior disc osteophyte complex at C6-7. High-grade osseous neural foraminal narrowing at C6-7 from disc disease and uncovertebral hypertrophy. Additional degenerative changes above. Head CT 01/29/20 00:00 IMPRESSION: No evidence of intracranial hemorrhage or other large vascular territory infarct. If high clinical concern for acute ischemic event. Consider MRI. EVIDENCE OF ACUTE STROKE: NO. Plan Plan of Treatment: Patient is discharged home in stable condition. She is advised follow-up with her primary care provider within 1 week. Follow-up with your established director sales and trade marketing as scheduled. She may benefit from outpatient follow-up with an orthopedic or auto radiator specialist to further evaluate her cervical spine degenerative disc disease. Continue to eat a heart healthy diet. Take medications as prescribed. Return to the emergency department, as needed, for concerning symptoms. Time Spent: Greater than 30 Minutes Stroke Is this a Stroke Patient?: No Acute Heart Failure Is this a Heart Failure Patient?: No
[2020-01-29 15:21] VITALS: BP 145/68
== END 2020-01-29 16:20 | disposition home or self-care (01) ==
LOC: ER 20:43 → EH 01-28 06:24 → 5TH 01-28 10:54 → 5 01-28 15:48
PROVIDERS: ADMIT Student in an Organized Health Care Education/Training Program; ATTEND Registered Nurse
DX: R20.2 Paresthesia of skin (principal); R20.0 Anesthesia of skin; I11.0 Hypertensive heart disease with heart failure; I50.9 Heart failure, unspecified; I25.10 Atherosclerotic heart disease of native coronary artery without angina pectoris; E10.9 Type 1 diabetes mellitus without complications; R29.890 Loss of height; M25.78 Osteophyte, vertebrae; M47.892 Other spondylosis, cervical region; R07.89 Other chest pain; R06.02 Shortness of breath; Z66 Do not resuscitate; K21.9 Gastro-esophageal reflux disease without esophagitis; Z95.1 Presence of aortocoronary bypass graft; Z95.810 Presence of automatic (implantable) cardiac defibrillator; Z87.891 Personal history of nicotine dependence; Z82.49 Family history of ischemic heart disease and other diseases of the circulatory system; Z20.828 Contact with and (suspected) exposure to other viral communicable diseases; Z79.899 Other long term (current) drug therapy; Z79.82 Long term (current) use of aspirin
CPT/HCPCS: 93005; 99285; 96374; 96375; 36415 ×2; 85025; 85610; 80053; 84484 ×2; 83036; 80061; 83880; 93306; 71045; 70450 ×2; 70496; 70498; 72125; 93010; 97116; 97162; 92610; 97165; G0378 ×3; A9270 ×12; J1200; J1940; J2930; J1650 ×2; S0028; J3490